=== PATIENT | male | born 1980 ===

== ENCOUNTER 2020-11-16 15:52 | Emergency (ER) | payer OTHER, SELFPAY ==
--- NOTE | ~2020-11-16 | US_ITS ---
EXAMINATION: US VENOUS ULTRASOUND WITH DOPPLER LOWER EXTREMITY, BILATERAL CLINICAL INFORMATION: Edema COMPARISON: None TECHNIQUE: Ultrasound of the deep veins is performed from the hip to the calf with compression sonography and color and pulse Doppler assessment. Spectral analysis with color-flow imaging is performed. FINDINGS: RIGHT: There is normal venous compression and respiratory variation and augmented flow. The visualized common femoral vein, superficial femoral vein, profunda femoral vein, popliteal vein, and the trifurcation region shows no evidence of deep venous thrombosis. There is no significant popliteal fossa cyst. LEFT: There is normal venous compression and respiratory variation and augmented flow. The visualized common femoral vein, superficial femoral vein, profunda femoral vein, popliteal vein, and the trifurcation region shows no evidence of deep venous thrombosis. There is no significant popliteal fossa cyst. If the patient's symptoms persist, followup ultrasound in 5 days 7 days might be of value to exclude proximal propagation from a non-visualized calf vein. US/US venous duplex LE BI IMPRESSION: No DVT demonstrated in the both lower extremity.
[2020-11-16 16:09] VITALS: BP 137/92; PULSE 78; RESP 18; TEMP 36.2; O2SAT 98; BMI 35.9
[2020-11-16 16:50] LABS: MANUAL DIFF FLAG NO
[2020-11-16 16:55] LABS: Basophils Percent Auto 0.3 % (0-2); Eosinophils Absolute Auto 0.4 X10*3/uL (0.0-0.4); Eosinophils Percent Auto 6.9 % (0-4); Hematocrit 39.3 % (42-52); Hemoglobin 12.8 g/dl (14.0-18.0); Imm Gran Abs Auto 0.03 X10*3/uL (0.00-0.03); Imm Gran Pct Auto 0.5 % (0.0-0.4); Lymphocytes Absolute Auto 2.1 X10*3/uL (1.2-4.9); Lymphocytes Percent Auto 33.7 % (20-40); Mean Corpuscular HGB Conc 32.6 g/dl (31.0-36.0); Mean Corpuscular Volume 88.9 fL (80-98); Mean Platelet Volume 9.4 fL (9.4-12.4); Monocytes Absolute Auto 0.5 X10*3/uL (0.1-1.2); Monocytes Percent Auto 7.9 % (2-11); Neutrophils Absolute Auto 3.2 X10*3/uL (2.0-8.3); Neutrophils Percent Auto 50.7 % (45-73); Platelet Count 171 X10*3/uL (160-400); Red Blood Count 4.42 X10*6/uL (4.60-5.80); Red Cell Distribution Width 12.9 % (11.0-16.0); White Blood Count 6.2 X10*3/uL (4.8-10.8)
[2020-11-16 17:31] LABS: Anion Gap 10 (12-20); Blood Urea Nitrogen 19 mg/dL (9-16); Calcium 9.6 mg/dL (8.4-10.2); Carbon Dioxide 31 mmol/L (22-29); Chloride 106 mmol/L (96-108); Creatinine Clr Calc Pharmacy 93.5; Estimated Glomerular Filt Rate 59; Glucose Random 84 mg/dL (60-115); Potassium 4.4 mmol/L (3.3-5.1); Sodium 143 mmol/L (135-145)
[2020-11-16 21:06] VITALS: BP 147/89; PULSE 76; RESP 16; TEMP 36.6; O2SAT 98
--- NOTE | 2020-11-16 21:09 | ED.EXTPRO ---
HPI - Extremity Problem General Chief complaint: Extremity Problem Stated complaint: feet swelling Time Seen by Provider: 11/16/20 21:09 Source: patient Mode of arrival: ambulatory Limitations: no limitations History of Present Illness HPI Narrative: Leg swelling. 2 days of swelling to both legs. Now getting worse. patient denies kidney or liver issues. no recent travel, no long trips, no history of clots. Denies dark urine. MD Complaint: extremity swelling Onset (ago): day(s) Location: left, right and lower extremity Associated symptoms: denies other symptoms Related Data Previous Rx's Medication Instructions Recorded furosemide 20 mg tablet (Lasix) 20 mg PO DAILY #10 tab 11/16/20 Allergies Allergy/AdvReac Type Severity Reaction Status Date / Time No Known Allergies Allergy Unverified 12/15/19 14:59 Review of Systems Constitutional: Constitutional: Reports no additional constitutional complaints Eyes: Eyes: Reports no additional eye complaints ENT: Denies dizziness Cardiovascular: Cardiovascular: Reports no additional cardiovascular complaints Respiratory: Respiratory: Reports as per HPI Gastrointestinal: Gastrointestinal: Reports no additional gastrointestinal complaints Musculoskeletal: Musculoskeletal: Reports no additional musculoskeletal complaints Integumentary/Breasts: Skin/Breast: Denies rash Neurologic: Reports system reviewed and no additional complaints, except as documented, Denies dizziness and Denies Sensory deficit (Neuro) Psychiatric: Psychiatric: Denies anxiety PMFSH Social History Social History Advance Directives: Yes Advance Directives Information Provided: Yes Advance Directives on File: No Physical Exam Vital Signs: Vital Signs: Last Vital Signs Temp 97.9 F 11/16/20 21:06 Pulse 76 11/16/20 21:06 Resp 16 11/16/20 21:06 BP 147/89 H 11/16/20 21:06 Pulse Ox 98 11/16/20 21:06 Body Mass Index 35.9 Const: General: healthy appearing Nutritional Appearance: average body habitus Orientation/consciousness: oriented to person and patient oriented x3 Limitations: no limitations HENMT: Head: Yes normal to inspection Ears: external ears normal General nose exam: Normal external nose present Mouth: Normal oral and palatal mucosa present and oropharynx normal Throat: Yes posterior oropharynx normal Eyes: General: appearance normal, both eyes and all related structures Neck: Other: supple Neck: Yes normal visual inspection Chest: Chest palpation & inspection: normal inspection of the chest Resp: Auscultation: clear to auscultation bilaterally Cardio: Jugular venous distension: no JVD Rate: regular rate Rhythm: regular rhythm Heart sounds: S1 normal heart sound present and S2 normal heart sound present GI: Inspection: Yes normal to inspection Palpation (GI): Soft to palpation, nontender and No hepatosplenomegaly present Auscultation: normal bowel sounds : General: Yes no CVA tenderness Back/Spine/Pelvis: Back: no CVA tenderness Skin: General skin exam: no rashes or lesions noted Neuro: General: oriented to person and patient oriented x3 Cranial nerves: Yes CN's II-XII intact bilaterally Motor exam (neuro): 5/5 motor strength present throughout Sensory Exam: No Sensory deficit (Neuro) Extrem: Other: bilateral leg edema good DP pulse bilaterally Psych: Appearance: grossly normal Course Reevaluation(s) Reevaluation #1: no evidence of DVT, liver failure, or renal failure will start on a few days of diuretic and dc home with leg elevation Time: 22:36 MDM - Extremity (Nontraumatic) Lab Data Result diagrams: 11/16/20 16:44 11/16/20 16:43 Labs: Lab Results 11/16/20 11/16/20 11/16/20 Range/Units 16:43 16:44 21:57 WBC 6.2 (4.8-10.8) X10*3/uL RBC 4.42 L (4.60-5.80) X10*6/uL Hgb 12.8 L (14.0-18.0) g/dl Hct 39.3 L (42-52) % MCV 88.9 (80-98) fL MCH 29.0 (27.0-33.0) pg MCHC 32.6 (31.0-36.0) g/dl RDW 12.9 (11.0-16.0) % Plt Count 171 (160-400) X10*3/uL MPV 9.4 (9.4-12.4) fL Immature Gran % (Auto) 0.5 H (0.0-0.4) % Neut % (Auto) 50.7 (45-73) % Lymph % (Auto) 33.7 (20-40) % [place] % (Auto) 7.9 (2-11) % Eos % (Auto) 6.9 H (0-4) % Baso % (Auto) 0.3 (0-2) % Lymph # (Auto) 2.1 (1.2-4.9) X10*3/uL [place] # (Auto) 0.5 (0.1-1.2) X10*3/uL Eos # (Auto) 0.4 (0.0-0.4) X10*3/uL Baso # (Auto) 0.0 (0.0-0.2) X10*3/uL Abs Immat Gran (auto) 0.03 (0.00-0.03) X10*3/uL Absolute Neuts (auto) 3.2 (2.0-8.3) X10*3/uL Absolute Nucleated RBC 0.000 (0.0-0.012) X10*3/uL Nucleated RBC % (auto) 0.0 (0.0-0.2) /100WBC Sodium 143 (135-145) mmol/L Potassium 4.4 (3.3-5.1) mmol/L Chloride 106 (96-108) mmol/L Carbon Dioxide 31 H (22-29) mmol/L Anion Gap 10 L (12-20) BUN 19 H (9-16) mg/dL Creatinine 1.35 (0.5-1.4) mg/dL Estim Creat Clear Calc 93.5 Estimated GFR 59 Random Glucose 84 (60-115) mg/dL Calcium 9.6 (8.4-10.2) mg/dL Total Bilirubin 0.3 (0.0-1.0) mg/dL Direct Bilirubin < 0.2 (0.0-0.5) mg/dL AST 34 (5-37) U/L ALT 56 H (0-40) U/L Alkaline Phosphatase 74 (39-117) U/L Total Protein 6.3 L (6.5-8.0) g/dL Albumin 4.0 (3.5-5.0) g/dL Urine Color Urine Appearance Urine pH (5.0-8.0) Ur Specific [place] (1.005-1.025) Urine Protein (NEG-TRACE) MG/DL Urine Glucose (UA) (NEG) MG/DL Urine Ketones (NEG) MG/DL Urine Blood (NEG) Urine Nitrite (NEG) Ur Leukocyte Esterase (NEG) 08/20/21 Range/Units 21:57 WBC (4.8-10.8) X10*3/uL RBC (4.60-5.80) X10*6/uL Hgb (14.0-18.0) g/dl Hct (42-52) % MCV (80-98) fL MCH (27.0-33.0) pg MCHC (31.0-36.0) g/dl RDW (11.0-16.0) % Plt Count (160-400) X10*3/uL MPV (9.4-12.4) fL Immature Gran % (Auto) (0.0-0.4) % Neut % (Auto) (45-73) % Lymph % (Auto) (20-40) % [place] % (Auto) (2-11) % Eos % (Auto) (0-4) % Baso % (Auto) (0-2) % Lymph # (Auto) (1.2-4.9) X10*3/uL [place] # (Auto) (0.1-1.2) X10*3/uL Eos # (Auto) (0.0-0.4) X10*3/uL Baso # (Auto) (0.0-0.2) X10*3/uL Abs Immat Gran (auto) (0.00-0.03) X10*3/uL Absolute Neuts (auto) (2.0-8.3) X10*3/uL Absolute Nucleated RBC (0.0-0.012) X10*3/uL Nucleated RBC % (auto) (0.0-0.2) /100WBC Sodium (135-145) mmol/L Potassium (3.3-5.1) mmol/L Chloride (96-108) mmol/L Carbon Dioxide (22-29) mmol/L Anion Gap (12-20) BUN (9-16) mg/dL Creatinine (0.5-1.4) mg/dL Estim Creat Clear Calc Estimated GFR Random Glucose (60-115) mg/dL Calcium (8.4-10.2) mg/dL Total Bilirubin (0.0-1.0) mg/dL Direct Bilirubin (0.0-0.5) mg/dL AST (5-37) U/L ALT (0-40) U/L Alkaline Phosphatase (39-117) U/L Total Protein (6.5-8.0) g/dL Albumin (3.5-5.0) g/dL Urine Color YELLOW Urine Appearance CLEAR Urine pH 6.5 (5.0-8.0) Ur Specific [place] 1.020 (1.005-1.025) Urine Protein NEG (NEG-TRACE) MG/DL Urine Glucose (UA) NEG (NEG) MG/DL Urine Ketones NEG (NEG) MG/DL Urine Blood NEG (NEG) Urine Nitrite NEG (NEG) Ur Leukocyte Esterase NEG (NEG) Discharge Plan Discharge Clinical Impression: Lower extremity edema Patient Disposition: Home, Self-Care Instructions: Leg Edema (ED), Edema (ED) Prescriptions: New furosemide [Lasix] 20 mg tablet 20 mg PO DAILY Qty: 10 RF: 0 Referrals: Physician,Unknown [Primary Care Provider] - 5 days
[2020-11-16 22:06] LABS: Glucose Urine UA NEG (NEG); Leukocyte Esterase Urine NEG (NEG); Nitrite Urine NEG (NEG); PH 6.5 (5.0-8.0); Urine Blood NEG (NEG); Urine Ketones NEG (NEG); Urine Protein NEG (NEG-TRACE)
[2020-11-16 22:08] LABS: Appearance Urine CLEAR; Color Urine YELLOW
[2020-11-16 22:29] LABS: Alanine Aminotransferase 56 U/L (0-40); Alkaline Phosphatase 74 U/L (39-117); Aspartate Amino Transferase 34 U/L (5-37); Bilirubin Direct < 0.2 mg/dL (0.0-0.5); Bilirubin Total 0.3 mg/dL (0.0-1.0); Total Protein 6.3 g/dL (6.5-8.0)
[2020-11-16 22:45] VITALS: BP 145/92; PULSE 75; RESP 16; TEMP 36.6; O2SAT 97
--- NOTE | 2020-11-16 23:04 | PC.NURSE ---
PT LEFT PRIOR TO RECEIVING HIS LASIX DOSE.
== END 2020-11-16 23:10 | disposition home or self-care (01) ==
PROVIDERS: Emergency Provider Emergency Medicine
DX: R60.0 Localized edema (principal)
CPT/HCPCS: 36415; 80048; 80076; 81003; 85025; 93970; 99284

== ENCOUNTER 2020-12-17 01:32 | Emergency (ER) | payer OTHER, SELFPAY ==
[2020-12-17 01:39] VITALS: BP 139/88; PULSE 97; RESP 16; TEMP 37.2; O2SAT 96; BMI 30.8
--- NOTE | 2020-12-17 02:11 | ED.GENADULT ---
HPI - General Adult General Chief complaint: ETOH/Substance Use Stated complaint: pcp Time Seen by Provider: 12/17/20 02:11 Source: patient and EMS Mode of arrival: EMS Limitations: no limitations History of Present Illness HPI narrative: A 40-year-old male came in for evaluation after using PCP. Patient admitted to using PCP last night, father of the patient called EMS to send him to the hospital patient is cooperative and calm with no apparent distress, patient declined any hallucination, no SI or HI. Patient declined any chest pain or shortness of breath. Will monitor the patient overnight in the hospital and will discharge in the morning. Related Data Previous Rx's Medication Instructions Recorded furosemide 20 mg tablet (Lasix) 20 mg PO DAILY #10 tab 11/16/20 Allergies Allergy/AdvReac Type Severity Reaction Status Date / Time No Known Allergies Allergy Unverified 12/15/19 14:59 Review of Systems Review of Systems: All other systems are reviewed and are negative Constitutional: Reports as per HPI and Reports no additional constitutional complaints Eyes: Reports as per HPI and Reports no additional eye complaints Reports system reviewed and no additional complaints, except as documented Cardiovascular: Reports as per HPI and Reports no additional cardiovascular complaints Respiratory: Reports as per HPI and Reports no additional respiratory complaints Gastrointestinal: Reports as per HPI and Reports no additional gastrointestinal complaints Genitourinary: Reports no additional female genitourinary complaints Musculoskeletal: Reports no additional musculoskeletal complaints Skin/Breast: Reports system reviewed and no additional complaints, except as docu Psychiatric: Reports no additional psychiatric complaints Endocrine: Reports no additional endocrine complaints Hematologic/Lymphatic: Reports no additional hematologic/lymphatic complaints Allergic/Immunologic: Reports no additional allergic/immunologic complaints Reports system reviewed and no additional complaints, except as documented and Reports Abnormal speech present [facility] Social History Social History Advance Directives: No Physical Exam Vital Signs: Vital Signs: Last Vital Signs Temp 98.9 F 12/17/20 01:39 Pulse 97 12/17/20 01:39 Resp 16 12/17/20 01:39 BP 139/88 12/17/20 01:39 Pulse Ox 96 12/17/20 01:39 Body Mass Index 30.8 Vital signs have been reviewed as appeared to be correct. Blood pressure normal. Heart rate normal. Respiration rate normal. Temperature normal. Oxygen saturation normal. Appearance: Alert. Oriented X3. No acute distress. Head: Normal external exam. Normocephalic. Atraumatic. No Tovar signs noted. No raccoon eyes noted Eyes: PERRLA. EOMI. Conjunctiva and sclera normal. Eyelids normal. ENT: TM's Normal. Pharynx normal. Uvula midline. Moist mucous membranes. No trismus noted. No drooling noted. No muffled voice noted. Neck: Normal inspection. Neck supple. FROM. No adenopathy. Thyroid Normal. No meningeal signs. No neck mass noted. CVS: Normal heart rate and rhythm. Heart sound normal. No murmurs noted. Pulses normal throughout. Respiratory: No respiratory distress. Painless inspiration. Breath sounds normal. No wheezes/rales/rhonchi noted. Chest nontender. No accessory muscle usage noted or decreased air movement noted. Abdomen: Soft and nontender. Bowel sounds normal in all 4 quadrants. No distention noted. No organomegaly noted. No visible injury noted. Back: No CVA tenderness. Full range of motion noted. Skin: Skin warm and dry. Normal skin color. Normal skin turgor. No rashes/lesions/lacerations noted. Extremities: No lower extremity edema. Extremities exhibit normal range of motion. Extremities nontender. Neuro: Oriented X 3. Cranial nerve exam: II-XII are grossly intact No motor deficit. No sensory deficit. Reflexes normal. Course Course Course Narrative: Assessment and plan. 40-year-old male kept overnight in the hospital for monitoring after using PCP, patient has no acute psychological symptoms, stable vital signs will discharge home. Discharge Plan Discharge Clinical Impression: Substance abuse Patient Disposition: Home, Self-Care Instructions: Polysubstance Abuse (ED) Additional Instructions: Follow-up with your primary doctor. Prescriptions: No Action furosemide [Lasix] 20 mg tablet 20 mg PO DAILY Qty: 10 RF: 0
[2020-12-17 02:41] VITALS: RESP 16; O2SAT 100
--- NOTE | 2020-12-17 02:42 | PC.NURSE ---
pt observed by this nurse sitting at the edge of bed looking around confused. pt stated where am I and this nurse reoriented pt and informed him about tonights events which brought him the hospital. pt then saw it was almost 3am and stated he wanted to go back to sleep. pt got back in bed and this nurse provided pt with fresh warm blanket. o2 probe on finger. call ibarra in reach. provider aware.
[2020-12-17 05:08] VITALS: RESP 16
[2020-12-17 06:57] VITALS: BP 135/86; PULSE 63; RESP 17; O2SAT 97
--- NOTE | 2020-12-17 07:01 | PC.NURSE ---
Assumed care of patient. Pt is up for discharge. Pt arousable and given his breakfast and repeated vitals which are in normal limits. Pt given his discharge paperwork.
== END 2020-12-17 07:03 | disposition home or self-care (01) ==
PROVIDERS: Emergency Provider Emergency Medicine
DX: F10.129 Alcohol abuse with intoxication, unspecified (principal); F16.10 Hallucinogen abuse, uncomplicated; Y90.9 Presence of alcohol in blood, level not specified; Z79.899 Other long term (current) drug therapy; Z71.51 Drug abuse counseling and surveillance of drug abuser
CPT/HCPCS: 99284

== ENCOUNTER 2022-09-21 16:41 | Emergency (ER) | payer OTHER, SELFPAY ==
--- NOTE | ~2022-09-21 | CT_ITS ---
EXAMINATION: CT ABDOMEN AND PELVIS WITH CONTRAST CLINICAL INFORMATION: Abdominal pain/ventral hernia COMPARISON: None available. TECHNIQUE: Multidetector volumetric images were obtained from the superior aspect of the liver through the pubic symphysis following administration 85 mL of Omnipaque 350 intravenous contrast. Sagittal and coronal reformatted images were obtained on the technologist's workstation. Oral contrast: No This CT examination was performed using dose optimization techniques as appropriate, variously including the following: *Automated exposure control *Adjustment of mA and/or kV according to patient size (this includes techniques or standardized protocols for targeted exams where dose is matched to indication/reason for exam; i.e. extremities or head) *Use of iterative reconstruction technique DLP: 831 mGy-cm FINDINGS: LUNG BASES: The visualized lung bases are unremarkable. LIVER, GALLBLADDER, AND BILIARY TREE: The liver is normal in size, shape, and attenuation. No focal hepatic lesion or biliary ductal dilatation is present. The gallbladder is contracted but unremarkable with no evidence of radiopaque gallstones, gallbladder wall thickening, or obvious pericholecystic inflammatory changes. PANCREAS: Unremarkable. SPLEEN: Unremarkable. ADRENAL GLANDS: Unremarkable. KIDNEYS AND URETERS: The kidneys are normal in size, shape, and attenuation. No hydronephrosis, hydroureter, or calculi seen. No perinephric stranding. BLADDER: Unremarkable. GASTROINTESTINAL TRACT: The small and large bowel are unremarkable. The appendix is unremarkable. ABDOMINAL WALL: Is a small ventral hernia present just above the umbilicus containing only fat with inflammatory changes within the fat. The hernia sac measures 2.5 x 2.5 x 3.1 cm. The fascial defect measures about 1.0 x 0.8 cm. LYMPH NODES: No retroperitoneal lymphadenopathy. VASCULAR: Unremarkable. PELVIC VISCERA: The prostate and seminal vesicles are unremarkable. OSSEOUS STRUCTURES: Unremarkable. CT/CT abdomen pelvis w IV con IMPRESSION: Small ventral hernia containing only fat with inflammatory changes within the fat. Fleischner guidelines were followed.
[2022-09-21 18:22] VITALS: BP 138/72; PULSE 70; RESP 18; TEMP 36.2; O2SAT 98; BMI 34.4
--- NOTE | 2022-09-21 18:22 | ED.ABDPAIN ---
HPI - Abdominal Pain General Chief Complaint: Abdominal Pain Stated Complaint: Abd pain/ Hernia? Time Seen by Provider: 09/21/22 21:09 Related Data Previous Rx's Medication Instructions Recorded furosemide 20 mg tablet (Lasix) 20 mg PO DAILY #10 tabs 11/16/20 Allergies Allergy/AdvReac Type Severity Reaction Status Date / Time No Known Allergies Allergy Unverified 12/15/19 14:59 [facility] Social History Social History Alcohol intake: never Smoked in Last 30 Days: Yes Use of substances other than those prescribed or required for medical reasons: Yes Substance Use Type: Marijuana Substance Use Frequency: Chronic Longstanding Substance Use Frequency Other:: last 2 hours Last Used Substance: Hours (ago) Any prior treatment program specific to substance use: No Advance Directives: No Advance Directives Information Provided: No Physical Exam ED Vital Signs: BMI result Body Mass Index 34.4 Course Course Course Narrative: This is an RME: Additional HPI, ROS, PE not included below will be deferred to primary provider. Patient is a 42-year-old male who presents to the emergency department for evaluation of abdominal pain. Reports onset of abdominal pain located superior to the umbilicus with palpable lump that is made worse with position change in, feels ?a tearing sensation?. It is manually reducible by his account. Denies fevers, chills, nausea or vomiting. Feels constipated, last bowel movement was yesterday. Denies any history of abdominal surgeries. Plan: Serum labs, CT AP Medical Decision Making Lab Data 09/21/22 19:20 09/21/22 19:20 Labs: Lab Results 09/21/22 09/21/22 09/21/22 Range/Units 19:20 19:20 19:20 WBC 10.8 (4.8-10.8) X10*3/uL RBC 5.17 (4.60-5.80) X10*6/uL Hgb 15.2 (14.0-18.0) g/dl Hct 46.7 (42.0-52.0) % MCV 90.3 (80.0-98.0) fL MCH 29.4 (27.0-33.0) pg MCHC 32.5 (31.0-36.0) g/dl RDW 12.9 (11.0-16.0) % Plt Count 220 (160-400) X10*3/uL MPV 9.8 (9.4-12.4) fL Immature Gran % (Auto) 0.4 (0.0-0.4) % Neut % (Auto) 46.1 (45-73) % Lymph % (Auto) 42.1 H (20-40) % [place] % (Auto) 6.6 (2-11) % Eos % (Auto) 4.5 H (0-4) % Baso % (Auto) 0.3 (0-2) % Lymph # (Auto) 4.6 (1.2-4.9) X10*3/uL [place] # (Auto) 0.7 (0.1-1.2) X10*3/uL Eos # (Auto) 0.5 H (0.0-0.4) X10*3/uL Baso # (Auto) 0.0 (0.0-0.2) X10*3/uL Abs Immat Gran (auto) 0.04 H (0.00-0.03) X10*3/uL Absolute Neuts (auto) 5.0 (2.0-8.3) x10*3/uL Absolute Nucleated RBC 0.000 (0.0-0.012) X10*3/uL Nucleated RBC % (auto) 0.0 (0.0-0.2) /100WBC Sodium 143 (135-145) mmol/L Potassium 4.4 (3.3-5.1) mmol/L Chloride 109 H (96-108) mmol/L Carbon Dioxide 28 (22-29) mmol/L Anion Gap 10 L (12-20) BUN 15 (9-16) mg/dL Creatinine 1.08 (0.5-1.4) mg/dL Estim Creat Clear Calc 112.3 Estimated GFR > 60 Random Glucose 79 (60-115) mg/dL Calcium 9.9 (8.4-10.2) mg/dL Total Bilirubin 0.5 (0.0-1.0) mg/dL AST 25 (5-37) U/L ALT 30 (0-40) U/L Alkaline Phosphatase 92 (39-117) U/L Total Protein 7.6 (6.5-8.0) g/dL Albumin 4.4 (3.5-5.0) g/dL Lipase 13 (8-78) U/L Urine Color Yellow Urine Appearance Clear Urine pH 5.0 (5.0-9.0) Ur Specific [place] >= 1.030 H (1.005-1.025) Urine Protein Negative (Neg-Trace) mg/dL Urine Glucose (UA) Negative (Negative) mg/dL Urine Ketones Negative (Negative) mg/dL Urine Blood Negative (Negative) Urine Nitrite Negative (Negative) Ur Leukocyte Esterase Negative (Negative) Medications Administered Discontinued Medications Generic Name Dose Route Start Last Admin Trade Name Freq PRN Reason Stop Dose Admin Iohexol 85 ml 09/21/22 20:40 09/21/22 20:41 Iohexol 350 Mg/Ml 100 Ml Infus..Btl IV 09/21/22 20:41 85 ml ONCE ONE Administration Discharge Plan Discharge Clinical Impression: Hernia, ventral Patient Disposition: Home, Self-Care Instructions: Ventral Hernia (ED) Prescriptions: No Action furosemide [Lasix] 20 mg tablet 20 mg PO DAILY Qty: 10 0RF Referrals: Williams Basilio MD [Physician] - 09/23/22 Stand Alone Forms: Work/School Release Interventions: ED Discharge Assessment Last Done: 09/21/22 22:49 Discharge Date/Time: 09/21/22 22:48
[2022-09-21 19:25] LABS: MANUAL DIFF FLAG NO
--- OUTSIDE RECORDS SUMMARY | 2022-09-21 19:26 | XMS_ITS ---
Author Name Unknown Organization [facility] Address [address] [place] [address]- Care Team Providers Care [facility] Reverse Winder Name Role Phone No pcp no family, Dr Primary Care Physician Unav ailable Encounter [facility] [id number] Date(s): 06/22/21 - 06/22/[address] [id number] [facility] Encounter Diagnosis Chronic pain(Discharge Diagnosis) - 06/22/21 Methadone use(Discharge Diagnosis) - 06/22/21 Heroin abuse(Discharge Diagnosis) - 06/22/21 Attending Physician: Richar Duran DO Admitting Physician: Richar Duran DO Referring Physician: No referring, Doctor Vital Signs Most recent to oldest [Reference Range]: 1 Temperature (Route Not Specified) [36.5- 37.3 DegC] 36 DegC *LOW* (06/22/21 11:35 AM) Peripheral Pulse Rate [60-100 bpm] 66 bp m (06/22/21 11:00 AM) Respiratory Rate [12-20 br/min] 22 br/mi n *HI* (06/22/21 11:35 AM) Blood Pressure [90-135/60-80 mmHg] 143/6 9mmHg *HI* (06/22/21 11:00 AM) Height 177.8 cm (06/22/21 9:31 AM) Weight 117.93 kg (06/22/21 9:31 AM) Problem List Diagnosis Diagnosis Type Effective Dates Health Status Cl inical Service Informant Methadone use Discharge Diagnosis 06/22/21 Non-Specified Chronic pain Discharge Diagnosis 06/22/21 Non-Specified Heroin abuse Discharge Diagnosis 06/22/21 Non-Specified Allergies, Adverse Reactions, Alerts No Known Allergies Medications naloxone (naloxone 1 mg/mL i njectable solution) Status: Ordered Start Date: 06/22/21 1 Milligram Intravenous Once. use in the case of opiod overdose. Refills: 0. Ordering provider: Richar Duran DO Results Most recent to oldest [Reference Range]: 1 Estimated Creatinine Clearance 102.40 mL /min 1 (06/22/21 10:29 AM) Anion Gap [9-18 mmol/L] 9 mmol/L (06/22/21 9:51 AM) INR [0.89-1.07] 1.43 *HI* (06/22/21 9:51 AM) BUN/Creat Ratio [12.0-20.0 Ratio] 14.0 R atio (06/22/21 9:51 AM) Acetaminophen Lvl [10.0-30.0 mcg/mL] <2. 0 mcg/mL *LOW* (06/22/21 9:51 AM) Alk Phos [50-136 units/L] 101 units/L (06/22/21 9:51 AM) ALT [16-63 units/L] 73 units/L *HI* (06/22/21 9:51 AM) AST [15-37 units/L] 47 units/L *HI* (06/22/21 9:51 AM) T Bili [0.20-1.00 mg/dL] 0.63 mg/dL (06/22/21 9:51 AM) CO2 [21.0-32.0 mmol/L] 17.0 mmol/L *LOW* (06/22/21 9:51 AM) Hct [42-53 %] 48 % (06/22/21 9:51 AM) Hgb [14.5-17.7 gm/dL] 15.8 gm/dL (06/22/21 9:51 AM) MCH [28.0-32.0 pg] 28.1 pg (06/22/21 9:51 AM) MCHC [31.2-35.2 gm/dL] 32.7 gm/dL (06/22/21 9:51 AM) MCV [81-98 Femtoliters] 86 Femtoliters (06/22/21 9:51 AM) MPV [7.2-11.1 Femtoliters] 8.0 Femtolite rs (06/22/21 9:51 AM) PT [9.8-11.7 Seconds] 14.6 Seconds *HI* (06/22/21 9:51 AM) RBC [4.60-6.00 x10e6/mcL] 5.61 x10e6/mcL (06/22/21 9:51 AM) Salicylate [2.80-20.00 mg/dL] 4.40 mg/dL (06/22/21 9:51 AM) TP [6.4-8.2 gm/dL] 8.3 gm/dL *HI* (06/22/21 9:51 AM) WBC [4.0-10.6 x10e3/mcL] 8.7 x10e3/mcL (06/22/21 9:51 AM) Plt [150-400 x10e3/mcL] 212 x10e3/mcL (06/22/21 9:51 AM) BUN [7-18 mg/dL] 14 mg/dL (06/22/21 9:51 AM) Chloride [98-107 mmol/L] 110 mmol/L *HI* (06/22/21 9:51 AM) Eos # Auto [0.0-0.3 x10e3/mcL] 0.3 x10e3 /mcL (06/22/21 9:51 AM) RDW-CV [10.0-15.4 %] 13.6 % (06/22/21 9:51 AM) [place] % Auto [3.0-13.0 %] 5.1 % (06/22/21 9:51 AM) Lymph # Auto [1.0-3.4 x10e3/mcL] 1.9 x10 e3/mcL (06/22/21 9:51 AM) Calcium [8.5-10.1 mg/dL] 8.9 mg/dL (06/22/21 9:51 AM) Neut % Auto [40.0-76.0 %] 68.9 % (06/22/21 9:51 AM) Lymph % Auto [16.0-47.0 %] 22.2 % (06/22/21 9:51 AM) Eos % Auto [0.0-5.0 %] 3.1 % (06/22/21 9:51 AM) Baso % Auto [0.0-2.0 %] 0.7 % (06/22/21 9:51 AM) Neut # Auto [1.8-7.0 x10e3/mcL] 6.0 x10e 3/mcL (06/22/21 9:51 AM) [place] # Auto [0.20-0.80 x10e3/mcL] 0.40 x 10e3/mcL (06/22/21 9:51 AM) Albumin. Level [3.4-5.0 gm/dL] 3.6 gm/dL (06/22/21 9:51 AM) Baso # Auto [0.0-0.1 x10e3/mcL] 0.1 x10e 3/mcL (06/22/21 9:51 AM) % Alcohol <0.01 % *NA* (06/22/21 9:51 AM) Ethanol [<=3 mg/dL] <3 mg/dL (06/22/21 9:51 AM) Potassium [3.5-5.1 mmol/L] 4.4 mmol/L (06/22/21 9:51 AM) Sodium [136-145 mmol/L] 136 mmol/L (06/22/21 9:51 AM) Glucose Level [74-106 mg/dL] 87 mg/dL (06/22/21 9:51 AM) eGFR [>=60] 108.09 *NA* (06/22/21 9:51 AM) eGFR Non- [>=60] 93.26 *NA* (06/22/21 9:51 AM) Creatinine [0.6-1.3 mg/dL] 1.0 mg/dL (06/22/21 9:51 AM) eGFR Pediatric [>=75 mL/min/1.73m2] Not Reported mL/min/1.73m2 2 *NA* (06/22/21 9:51 AM) Calc [place]smo [265-285] 272 (06/22/21 9:51 AM) 1Result Comment: Calculated using method: Cockroft-Gault 2Result Comment: Not reported for adult patients ( > 18 years old ). Procedures Procedure Date Related Diagnosis Body Site Status Collection of venous blood b y venipuncture 06/22/21 Completed Social History Social History Type Response Tobacco Current 1 11/2 pack per day
[2022-09-21 19:31] LABS: Appearance Urine Clear; Color Urine Yellow; Glucose Urine UA Negative (Negative); Leukocyte Esterase Urine Negative (Negative); Nitrite Urine Negative (Negative); Specific Gravity - Urine >= 1.030 (1.005-1.025); Urine Blood Negative (Negative); Urine Ketones Negative (Negative); Urine Protein Negative (Neg-Trace)
[2022-09-21 19:32] LABS: Basophils Percent Auto 0.3 % (0-2); Eosinophils Absolute Auto 0.5 X10*3/uL (0.0-0.4); Eosinophils Percent Auto 4.5 % (0-4); Hematocrit 46.7 % (42.0-52.0); Hemoglobin 15.2 g/dl (14.0-18.0); Imm Gran Abs Auto 0.04 X10*3/uL (0.00-0.03); Imm Gran Pct Auto 0.4 % (0.0-0.4); Lymphocytes Absolute Auto 4.6 X10*3/uL (1.2-4.9); Lymphocytes Percent Auto 42.1 % (20-40); Mean Corpuscular HGB Conc 32.5 g/dl (31.0-36.0); Mean Corpuscular Hemoglobin 29.4 pg (27.0-33.0); Mean Corpuscular Volume 90.3 fL (80.0-98.0); Mean Platelet Volume 9.8 fL (9.4-12.4); Monocytes Absolute Auto 0.7 X10*3/uL (0.1-1.2); Monocytes Percent Auto 6.6 % (2-11); Neutrophils Percent Auto 46.1 % (45-73); Platelet Count 220 X10*3/uL (160-400); Red Blood Count 5.17 X10*6/uL (4.60-5.80); Red Cell Distribution Width 12.9 % (11.0-16.0); White Blood Count 10.8 X10*3/uL (4.8-10.8)
[2022-09-21 20:10] LABS: Alanine Aminotransferase 30 U/L (0-40); Albumin Level 4.4 g/dL (3.5-5.0); Alkaline Phosphatase 92 U/L (39-117); Anion Gap 10 (12-20); Aspartate Amino Transferase 25 U/L (5-37); Bilirubin Total 0.5 mg/dL (0.0-1.0); Blood Urea Nitrogen 15 mg/dL (9-16); Calcium 9.9 mg/dL (8.4-10.2); Carbon Dioxide 28 mmol/L (22-29); Chloride 109 mmol/L (96-108); Creatinine Clr Calc Pharmacy 112.3; Estimated Glomerular Filt Rate > 60; Glucose Random 79 mg/dL (60-115); Lipase 13 U/L (8-78); Potassium 4.4 mmol/L (3.3-5.1); Sodium 143 mmol/L (135-145); Total Protein 7.6 g/dL (6.5-8.0)
[2022-09-21 20:20] VITALS: BP 122/85; PULSE 66; RESP 17; TEMP 36.8; O2SAT 98
[2022-09-21] MEDS: iohexoL 350 MG/ML 100 ML INFUS..BTL 85 ML IV (20:41)
--- NOTE | 2022-09-21 21:32 | ED.ABDPAIN ---
HPI - Abdominal Pain General Chief Complaint: Abdominal Pain Stated Complaint: Abd pain/ Hernia? Time Seen by Provider: 09/21/22 21:09 History of Present Illness HPI narrative: Patient is a 42-year-old male present today with having abdominal pain. Patient feels a mass just above the belly button. It is worse when he bears down. It is worse when he stands up. It goes away when he lies flat. Patient discovered this when he was lifting a heavy box. He has no nausea no vomiting. He has some constipation but has been passing gas. No abdominal surgery in the past. No fever no chills. No chest pain no shortness of breath. No diaphoresis. Related Data Previous Rx's Medication Instructions Recorded furosemide 20 mg tablet (Lasix) 20 mg PO DAILY #10 tabs 11/16/20 Allergies Allergy/AdvReac Type Severity Reaction Status Date / Time No Known Allergies Allergy Unverified 12/15/19 14:59 Review of Systems Review of Systems Positive mass in the supraumbilical area PMFSH Past Medical History Attestation statement: The following information was validated with the patient. Social History Social History Alcohol intake: never Smoked in Last 30 Days: Yes Use of substances other than those prescribed or required for medical reasons: Yes Substance Use Type: Marijuana Substance Use Frequency: Chronic Longstanding Substance Use Frequency Other:: last 2 hours Last Used Substance: Hours (ago) Any prior treatment program specific to substance use: No Advance Directives: No Advance Directives Information Provided: No Physical Exam ED Vital Signs: Vital Signs - 24 hr 09/21/22 18:22 09/21/22 20:20 Temperature 97.2 F 98.3 F Pulse Rate 70 66 Respiratory Rate 18 17 Blood Pressure 138/72 122/85 Pulse Oximetry 98 98 Oxygen Delivery Method Room Air Room Air BMI result Body Mass Index 34.4 Appearance: Alert. Oriented X3. No acute distress. Eyes: Pupils equal, round and reactive to light. ENT: Pharynx normal. Neck: Normal inspection. Neck supple. No lymph nodes noted. No crepitus CVS: Normal heart rate and rhythm. Pulses normal. Normal S1 and S2 Respiratory: No respiratory distress. Breath sounds normal. No Wheezing. No rales Abdomen: Soft and nontender. No rigidity. No distention. good BS x4. Positive supraumbilical ventral hernia palpable. Clearly reducible when he lies down. She is nontender. Skin: Skin warm and dry. Normal skin color. Normal skin turgor. Extremities: No lower extremity edema. Neurovascular intact to all extremities. No Lacerations. No Rash Neuro: Oriented X 3. No motor deficit. No sensory deficit. Moving all extermities. No slurred speech Medical Decision Making Medical Decision Making [facility] Narrative: Patient has no previous abdominal surgery. Well-appearing no distress. Lungs are clear. No chest pain or shortness of breath suggest cardiac causes. Patient has no vomiting. Has a mass that increased with increased intra-abdominal pressure. Consistent with having a hernia. It is clearly reducible. It is not painful. Findings discussed with patient. CT scan reviewed. There is no evidence of obstruction no evidence of abscess no evidence of perforation. Will discharge patient home follow-up with surgery on an outpatient basis. In stable condition. patient's urine showed no evidence of infection. CT showed no bowel obstruction. Small amount of fat with inflammation noted per Radiology. Clearly the hernia is reducible. Will have patient follow up with surgery on an outpatient basis. Differential Diagnosis Differential Diagnoses: The differential diagnosis associated with the presentation includes Ventral hernia Lab Data [facility] Lab Attestation statement: I reviewed the patient's lab results. 09/21/22 19:20 09/21/22 19:20 Labs: Lab Results 09/21/22 09/21/22 09/21/22 Range/Units 19:20 19:20 19:20 WBC 10.8 (4.8-10.8) X10*3/uL RBC 5.17 (4.60-5.80) X10*6/uL Hgb 15.2 (14.0-18.0) g/dl Hct 46.7 (42.0-52.0) % MCV 90.3 (80.0-98.0) fL MCH 29.4 (27.0-33.0) pg MCHC 32.5 (31.0-36.0) g/dl RDW 12.9 (11.0-16.0) % Plt Count 220 (160-400) X10*3/uL MPV 9.8 (9.4-12.4) fL Immature Gran % (Auto) 0.4 (0.0-0.4) % Neut % (Auto) 46.1 (45-73) % Lymph % (Auto) 42.1 H (20-40) % [place] % (Auto) 6.6 (2-11) % Eos % (Auto) 4.5 H (0-4) % Baso % (Auto) 0.3 (0-2) % Lymph # (Auto) 4.6 (1.2-4.9) X10*3/uL [place] # (Auto) 0.7 (0.1-1.2) X10*3/uL Eos # (Auto) 0.5 H (0.0-0.4) X10*3/uL Baso # (Auto) 0.0 (0.0-0.2) X10*3/uL Abs Immat Gran (auto) 0.04 H (0.00-0.03) X10*3/uL Absolute Neuts (auto) 5.0 (2.0-8.3) x10*3/uL Absolute Nucleated RBC 0.000 (0.0-0.012) X10*3/uL Nucleated RBC % (auto) 0.0 (0.0-0.2) /100WBC Sodium 143 (135-145) mmol/L Potassium 4.4 (3.3-5.1) mmol/L Chloride 109 H (96-108) mmol/L Carbon Dioxide 28 (22-29) mmol/L Anion Gap 10 L (12-20) BUN 15 (9-16) mg/dL Creatinine 1.08 (0.5-1.4) mg/dL Estim Creat Clear Calc 112.3 Estimated GFR > 60 Random Glucose 79 (60-115) mg/dL Calcium 9.9 (8.4-10.2) mg/dL Total Bilirubin 0.5 (0.0-1.0) mg/dL AST 25 (5-37) U/L ALT 30 (0-40) U/L Alkaline Phosphatase 92 (39-117) U/L Total Protein 7.6 (6.5-8.0) g/dL Albumin 4.4 (3.5-5.0) g/dL Lipase 13 (8-78) U/L Urine Color Yellow Urine Appearance Clear Urine pH 5.0 (5.0-9.0) Ur Specific [place] >= 1.030 H (1.005-1.025) Urine Protein Negative (Neg-Trace) mg/dL Urine Glucose (UA) Negative (Negative) mg/dL Urine Ketones Negative (Negative) mg/dL Urine Blood Negative (Negative) Urine Nitrite Negative (Negative) Ur Leukocyte Esterase Negative (Negative) Independent Interpretation I performed an independent interpretation of an: CT Scan Interpretation: No obstruction no abscess or perforation Radiology Impression Discussion of test interpretation with radiology: I have reviewed the radiologist's reading. Independent Historian Clinical information obtained from an independent historian. History obtained from or confirmed by: Spouse Medications Administered Discontinued Medications Generic Name Dose Route Start Last Admin Trade Name Freq PRN Reason Stop Dose Admin Iohexol 85 ml 09/21/22 20:40 09/21/22 20:41 Iohexol 350 Mg/Ml 100 Ml Infus..Btl IV 09/21/22 20:41 85 ml ONCE ONE Administration Discharge Plan Discharge Clinical Impression: Hernia, ventral Patient Disposition: Home, Self-Care Instructions: Ventral Hernia (ED) Prescriptions: No Action furosemide [Lasix] 20 mg tablet 20 mg PO DAILY Qty: 10 0RF Referrals: Williams Basilio MD [Physician] - 09/23/22
--- NOTE | 2022-09-21 22:48 | PC.NURSE ---
patient in the process of being discharged patient was notified
== END 2022-09-21 22:48 | disposition home or self-care (01) ==
PROVIDERS: Nurse Practitioner Family; Emergency Provider Emergency Medicine Emergency Medical Services
DX: K43.9 Ventral hernia without obstruction or gangrene (principal); R10.32 Left lower quadrant pain; Z79.899 Other long term (current) drug therapy
CPT/HCPCS: 36415; 74177; 80053; 81003; 83690; 85025; 99284; Q9967

== ENCOUNTER 2022-10-13 10:38 | Outpatient (AMB) | payer OTHER, SELFPAY ==
--- NOTE | 2022-10-13 10:41 | A.OFFVIS_ITS ---
Intake Vital Signs 10/13/22 10:42 Height 5 ft 10 in Weight 254 lb BMI 36.4 BP 156/84 H Blood Pressure Location Rt brachial Position Sitting Pulse 86 Intake Visit Reasons: Hernia, ventral Intake Note: Patient referred for ventral hernia. Hundred lump after lifting at work. Unsure how long hernia has been present. 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 He has had this indeterminate amount of time. It has been least a few months that he has noticed it and it has become more symptomatic. He does occasionally do heavy lifting. His prior employment he did significant heavy lifting. Patient is tolerating a diet, having normal bowel habits. He has no other GI issues or complaints. Chart was reviewed patient evaluated [facility] Medical History (Updated 10/13/22 @ 10:49 by ELLA Moss) Hypertension Social History (Updated 10/13/22 @ 10:49 by ELLA Moss) Alcohol intake: never Patient Tobacco Use Status: Current someday Tobacco user Tobacco use type: Cigarette Cigarette Packs Per Day: 1 Substance Use Type: Marijuana Physical Exam Vital Signs: Last Vital Signs Pulse 86 10/13/22 10:42 BP 156/84 H 10/13/22 10:42 BMI result Body Mass Index 36.4 Const Other: Corpulent male Chest Other: Chest breath sounds bilaterally, HS 1 in 2 GI Other: Patient was examined both supine and standing with Valsalva. Corpulent abdomen. Supraumbilical a reducible ventral hernia approximately 2 cm in size. Abdomen soft benign. Bilateral groin exam negative. Genitalia within normal limits. Assessment & Plan Assessment & Plan (1) Hernia of anterior abdominal wall: Code(s): K43.9 - Ventral hernia without obstruction or gangrene Plan Risks, benefits, alternatives of supraumbilical ventral hernia repair open technique with mesh were reviewed with the patient and included but not limited to bleeding, infection, recurrence, numbness, pain, scarring bowel injury or leak and the patient wishes to proceed. Arrangements were made for this. All questions were answered. Coding Level of Care Code New Pt Level 4 (72984) Diagnoses Hernia of anterior abdominal wall K43.9
[2022-10-13 10:42] VITALS: BP 156/84; PULSE 86; BMI 36.4
== END 2022-10-13 11:38 | disposition home or self-care (01) ==
PROVIDERS: Visit Provider Surgery
DX: K43.9 Ventral hernia without obstruction or gangrene (principal)
CPT/HCPCS: 99204

== ENCOUNTER → 2022-10-13 10:38 | Outpatient (BNVA) | payer OTHER, SELFPAY | PROVIDERS: Visit Provider Surgery | DX: K43.9 Ventral hernia without obstruction or gangrene (principal) | CPT/HCPCS: 99202 ==

== ENCOUNTER 2022-11-06 07:35 | Day surgery (SDC) | payer OTHER, SELFPAY ==
[2022-11-03 14:18] VITALS: BMI 36.4
[2022-11-06] VITALS (8 sets, daily range): BP systolic 97–161; BP diastolic 58–98; PULSE 71–93; RESP 16; TEMP 35.4–36.6; O2SAT 93–97
--- NOTE | 2022-11-06 08:32 | MHC.SHP ---
Pre-Procedural Eval Section A Date of Service: 11/06/22 The patient is an INPATIENT: No Changes since office visit: No Cold of Flu in the past 2 weeks, No New Medical Problems, No Changes in Medication and No Patient answered all questions The History & Physical has been completed within 30 days and I have reviewed it.: Yes Section B Chief Complaint: Ventral hernia without obstruction or gangrene Allergies: Allergies Allergy/AdvReac Type Severity Reaction Status Date / Time No Known Allergies Allergy Verified 11/06/22 07:40 Plan I have reviewed the history and physical and performed a pertinent physical examination on my patient. No changes have occurred unless specified. Time Spent With Patient Time: Total time managing care of this patient today ____ minutes.
--- NOTE | 2022-11-06 09:41 | P.OP_ITS ---
Operative Note Operative Note Date of Service: 11/06/22 Narrative: Preoperative diagnosis: [] Incarcerated supraumbilical ventral hernia Postop diagnosis: [] Same Procedure [] repair incarcerated supraumbilical ventral hernia with Bard mesh. Surgeon: [] Praful Cook At School: [] KENNEDI Geronimo Type of Anesthesia: [] General Indication for surgery: [] Approximately 3 cm supraumbilical incarcerated ventral hernia with omental contents. Findings: [] Patient brought to the operating room, placed on operative table in supine position, after adequate level of general anesthesia was induced, the patient's abdomen which was moderately corpulent was prepped and draped in usual sterile fashion. Using a transverse incision just above the umbilicus over the hernia in question, this carried down through skin, subcutaneous tissue, down to the hernia sac. This was circumferentially dissected down the fascia and opened. Incarcerated omental contents were from the sac and returned into the abdominal cavity. Redundant sac was amputated using Bovie. Fascia margins were cleared. A Bard mesh was placed in the defect and the superficial layer of the mesh was circumferentially sutured to the surrounding fascia using interrupted 0 Ethibond suture. A completion procedure, mesh was in good position with no gaps in no tension. Wound was irrigated, secured hemostasis, and closed using interrupted inverted dermal 3-0 Vicryl sutures followed by running subcuticular 4-0 Vicryl suture. Steri-Strips and sterile dressings were applied. Wound was infiltrated 0.5% Marcaine/1% lidocaine at completion. Sponge, needle, and instrument counts reported to be correct. Patient tolerated the procedure well and emerged anesthesia stable condition. EBL minimal
== END 2022-11-06 11:30 | disposition home or self-care (01) ==
PROVIDERS: Visit Provider Surgery
PROC: (CPT 49594; principal; 2022-11-06 08:40)
DX: K43.6 Other and unspecified ventral hernia with obstruction, without gangrene (principal); I10 Essential (primary) hypertension; F17.210 Nicotine dependence, cigarettes, uncomplicated; F12.90 Cannabis use, unspecified, uncomplicated
CPT/HCPCS: 49594; 88302; C1781; J0690; J1100; J1885; J2250; J2405; J2795; J3010

== ENCOUNTER → 2022-11-06 07:35 | Outpatient (BNV) | payer OTHER, SELFPAY | PROVIDERS: Visit Provider Surgery | DX: K42.0 Umbilical hernia with obstruction, without gangrene (principal) | CPT/HCPCS: 49594 ==

== ENCOUNTER 2022-11-18 14:27 | Outpatient (AMB) | payer OTHER, SELFPAY ==
--- NOTE | 2022-11-18 14:31 | MHC.OFFVIS ---
Intake Vital Signs 11/18/22 14:36 BP 131/65 Blood Pressure Location Rt brachial Position Sitting Pulse 76 Intake Visit Reasons: S/P supra umbilical ventral hernia w/mesh Intake Note: This patient presents for a post-op assessment status post repair incarcerated supraumbilical ventral hernia with Bard mesh. Patient c/p; reports concerns with the way the surgical site. 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 He is doing well. He has minimal incisional discomfort. He has time diet based on normal bowel habits. He is increasing his activity level. [facility] Medical History (Updated 10/13/22 @ 10:49 by ELLA Moss) Hypertension Surgical History (Updated 11/18/22 @ 14:39 by ELLA Bang) History of hernia repair Social History Alcohol intake: never Patient Tobacco Use Status: Current everyday Tobacco user Tobacco use type: Cigarette Cigarette Packs Per Day: 1 Cigarettes Per Day: 10 Substance Use Type: Marijuana Physical Exam Vital Signs: Last Vital Signs Pulse 76 11/18/22 14:36 BP 131/65 11/18/22 14:36 GI Other: Abdomen soft. Wound clean dry and intact. Assessment & Plan Assessment & Plan (1) Hernia of anterior abdominal wall: Code(s): K43.9 - Ventral hernia without obstruction or gangrene Plan Patient has been given local instructions, and will follow-up p.r.n.. Coding Level of Care Code Global (88352) Diagnoses Hernia of anterior abdominal wall K43.9
[2022-11-18 14:36] VITALS: BP 131/65; PULSE 76
== END 2022-11-18 14:41 | disposition home or self-care (01) ==
PROVIDERS: Visit Provider Surgery
DX: K43.9 Ventral hernia without obstruction or gangrene (principal)
CPT/HCPCS: 99213

== ENCOUNTER → 2022-11-18 14:27 | Outpatient (BNVA) | payer OTHER, SELFPAY | PROVIDERS: Visit Provider Surgery | DX: Z48.815 Encounter for surgical aftercare following surgery on the digestive system (principal) | CPT/HCPCS: 99212 ==

== ENCOUNTER 2024-02-09 09:50 | Outpatient (AMB) | payer OTHER, SELFPAY ==
--- NOTE | 2024-02-09 09:46 | A.OFFVIS_ITS ---
Vital Signs 3 02/09/24 10:06 Height 5 ft 11 in Weight 319 lb BMI 44.5 BP 148/75 H Blood Pressure Location Lt brachial Position Sitting Pulse 87 Intake Visit Reasons: Recurrent umbilical hernia Intake Note: Patient is seen in office for evaluation of an umbilical hernia. 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 Accompanied by: Self / Same As Patient Allergies No Known Allergies Allergy (Verified 02/09/24 09:57) Medication List - Last Reconciled 02/09/24 by Edwardo Vaughan MD celecoxib (Celebrex) 200 mg PO BID cyclobenzaprine 10 mg PO BEDTIME lisinopril-hydrochlorothiazide 20-25 mg 1 tab PO DAILY nicotine (polacrilex) (Nicorette) 4 mg buccal Q2H omeprazole 20 mg PO DAILY quetiapine (Seroquel) 25 mg PO DAILY sennosides (Natural Senna Laxative) 8.6 mg PO DAILY tirzepatide (weight loss) (Zepbound) 2.5 mg subcut QWEEK trazodone 100 mg PO BEDTIME PRN varenicline (Chantix) 1 mg PO BID HPI Comments Details: 43-year-old male patient presenting for evaluation of a recurrent abdominal wall hernia which apparently was previously repaired approximately 1 year ago. He states this was repaired at [facility] although we have no record of any surgery or previous visits to our office. He states the recurrent hernia began soon after the previous repair which apparently was performed with mesh. He reports developing increased abdominal pain, nausea and reflux but denies diarrhea or constipation. He feels the lump has increased in size significantly over the past year. [facility], [facility] Medical History (Updated 02/09/24 @ 10:16 by Edwardo Vaughan MD) Incisional hernia History of substance abuse GERD (gastroesophageal reflux disease) Obesity Depression Low back pain Hypertension Surgical History (Updated 02/09/24 @ 10:06 by ELLA Harris) Hx of umbilical hernia repair (~2022) Social History Alcohol intake: never Patient Tobacco Use Status: Former Tobacco user Review of Systems Const All systems reviewed & are unremarkable except as noted in HPI and below Denies chills, Denies fever(s), Denies headache(s), Denies poor appetite and Denies weakness ENT Denies headache(s) Card Denies chest pain, Denies irregular heart rhythm, Denies palpitations and Denies dyspnea Resp Denies cough, Denies excessive phlegm production and Denies dyspnea GI Reports abdominal pain, Reports bloating, Denies change in bowel habits, Denies constipation, Denies heartburn, Denies diarrhea, Reports nausea and Denies vomiting Denies difficulty urinating and Denies urinary frequency Musc Denies back pain, Denies muscle weakness and Denies numbness Skin/Breast Denies changing lesions and Denies unusual bruising Neuro Denies headache(s), Denies numbness, Denies paresthesias and Denies weakness Psych Denies anxiety and Denies depression Endo Denies palpitations Arnaldo/Lymph Denies lymphadenopathy Physical Exam Const General: cooperative and no acute distress Nutritional Appearance: well nourished Orientation/consciousness: patient oriented x3 Limitations: no limitations HEENT Head: Yes normocephalic and Yes atraumatic Ears: hearing grossly normal bilaterally Resp Effort & Inspection: normal respiratory effort, no audible wheezes, no cough and no respiratory distress Cardio Jugular venous distension: no JVD GI Other: Palpable hernia noted in the upper abdomen which increases with Valsalva but reduces in the supine position with light pressure. There is mild tenderness to palpation. No overlying skin changes are appreciated. A well-healed incision is located below the hernia which is transverse. The actual hernia defect measures approximately 9 cm in diameter. Inspection: Yes normal to inspection and Yes obesity Palpation (GI): Tenderness to palpation present (GI) Abdomen image: 2 1. Previous incision supraumbilical 2. Hernia in mid upper abdomen noted in the standing position, 9 cm in diameter. Reducible while in the supine position. Also noted is a diastasis recti in the upper abdomen as well. Skin Other: Warm, dry, no rash Neuro General: patient oriented x3 Extrem General: Yes no clubbing, cyanosis or edema Assessment & Plan Assessment & Plan (1) Incisional hernia: Code(s): K43.2 - Incisional hernia without obstruction or gangrene Category: Medical Qualifiers: Obstruction and gangrene presence: without obstruction or gangrene Q ualified Code(s): K43.2 - Incisional hernia without obstruction or gangrene Plan 43-year-old male patient presenting with a recurrent incisional hernia located in the upper abdomen measuring approximately 9 cm, found on examination to be reducible. No information is available regarding his previous repair including site of repair and type of mesh used for the repair. I do recommend repair of this recurrent incisional hernia and after discussion of the procedure, risks, and alternatives, he consents to repair of the recurrent incisional hernia with mesh. This will be scheduled as a short-stay surgery at his earliest convenience. Coding Level of Care Code New Pt Level 4 (61070) Diagnoses Incisional hernia, without obstruction or gangrene K43.2 Obstruction and gangrene presence: without obstruction or gangrene
[2024-02-09 10:06] VITALS: BP 148/75; PULSE 87; BMI 44.5
== END 2024-02-09 10:07 | disposition home or self-care (01) ==
PROVIDERS: PCP Physician Assistant Medical; Visit Provider Surgery
DX: K43.2 Incisional hernia without obstruction or gangrene (principal)
CPT/HCPCS: 99204

== ENCOUNTER → 2024-02-09 09:50 | Outpatient (BNVA) | payer OTHER, SELFPAY | PROVIDERS: PCP Physician Assistant Medical; Visit Provider Surgery | DX: K43.2 Incisional hernia without obstruction or gangrene (principal) | CPT/HCPCS: 99202 ==

== ENCOUNTER 2024-04-04 09:26 | Day surgery (SDC) | payer OTHER, SELFPAY ==
[2024-03-31 11:33] VITALS: BMI 44.5
[2024-04-04] VITALS (13 sets, daily range): BP systolic 123–155; BP diastolic 66–91; PULSE 61–77; RESP 14–22; TEMP 36.4–36.8; O2SAT 91–98; BMI 44.9
[2024-04-04 10:13] LABS: Amphetamine Screen Urine Not Detected (Not Detect); Barbiturates, Urine Not Detected (Not Detect); Benzodiazepines Screen Urine Not Detected (Not Detect); Buprenorphine Scr Not Detected (Not Detect); Cannabinoid Screen Urine POSITIVE (Not Detect); Cocaine Screen Urine Not Detected (Not Detect); Fentanyl, urine Not Detected (Not Detect); Methadone Screen, Urine Not Detected (Not Detect); Opiate Screen Urine Not Detected (Not Detect); Oxycodone Screen Urine Not Detected (Not Detect); Phencyclidine Screen Urine Not Detected (Not Detect)
[2024-04-04] MEDS: Lactated Ringers 1,000 ML 100 ML IVCONT (10:16)
--- NOTE | 2024-04-04 10:47 | MHC.SHP ---
Pre-Procedural Eval Section A - 24 Hr Update-Section A only Date of Service: 04/04/24 The patient is an INPATIENT: No Changes since office visit: Yes Patient answered all questions; No Cold of Flu in the past 2 weeks, No New Medical Problems and No Changes in Medication The patient has been examined within 24 hours of the surgical procedure. The History & Physical has been completed within 30 days and I have reviewed it.: No Section B - Complete if H&P > 30 days Chief Complaint: Incisional hernia without obstruction or gangrene Details of Present Illness: no changes in symptoms since office evaluation Relevant Family History (Specify if Yes): No Relevant Social History: Other (specify) Present Medications: see Short Stay Collaborative assessment Medical History: Significant History (GERD. HTN) History of Previous Operations: Relevant previous surgery/procedure and date(s) (ventral hernia repair) Allergies: Allergies Allergy/AdvReac Type Severity Reaction Status Date / Time No Known Allergies Allergy Verified 02/17/24 15:00 Review of Systems Sugical H&P ROS: Negative: Constitution, Cardiovascular, Respiratory, Gastrointestinal and Musculoskeletal Exam Surgical H&P Exam: Normal: Heart, Normal: Lungs, Normal: Extremities, Normal: Abdomen and Normal: Skin Plan Diagnosis/Plan: Unchanged I have reviewed the history and physical and performed a pertinent physical examination on my patient. No changes have occurred unless specified. Time Spent With Patient Time: Total time managing care of this patient today ____ minutes.
--- NOTE | 2024-04-04 12:14 | HO.ANESPROP2 ---
[facility] Active Problems Active Problems: All Active Problems Hernia of anterior abdominal wall (Acute) Incisional hernia (Acute) History of substance abuse (Acute) GERD (gastroesophageal reflux disease) (Acute) Obesity (Acute) Low back pain (Acute) Hypertension (Acute) Past Medical History Medical History (Updated 03/31/24 @ 11:36 by Emperatriz Spangler RN) Incisional hernia History of substance abuse GERD (gastroesophageal reflux disease) Obesity Depression Low back pain Hypertension Hypertension Family History Family history of problems with anesthesia: No Surgical History Surgical History (Updated 03/31/24 @ 11:16 by Emperatriz Spangler RN) Hx of umbilical hernia repair (~2022) History of hernia repair History of Problems with Anesthesia: No Social History Social History (Updated 03/31/24 @ 11:42 by Emperatriz Spangler RN) Are you a primary healthcare manager to a significant other at home: No Do you presently have visiting nurse or other home services: No Alcohol intake: never Patient Tobacco Use Status: Former Tobacco user Tobacco use type: Cigarette Substance Use Type: Marijuana Substance Use Frequency: Daily Have you been hit, kicked, punched, or otherwise hurt by someone within the past year? If so, by whom?: No Are you DNR?: No Advance Directives: No Advance Directives Information Provided: Yes Recently lost weight without trying: No Nutrition Risks: No Nutritional Risk Meds Allergies Allergy/AdvReac Type Severity Reaction Status Date / Time No Known Allergies Allergy Verified 02/17/24 15:00 Active Medications: Current Medications Lactated Ringer's (Lr) 1,000 mls @ 100 mls/hr IVCONT .Q10H JAQUELIN Last Admin: 04/04/24 10:16 Dose: 100 mls/hr Home Medications ?Medication ?Instructions ?Recorded ?Confirmed ?Last Taken ?Type celecoxib 200 mg capsule (Celebrex) 200 mg PO BID 02/09/24 03/31/24 Unknown History cyclobenzaprine 10 mg tablet 10 mg PO BEDTIME 02/09/24 03/31/24 Unknown History lisinopril 20 1 tab PO DAILY 02/09/24 03/31/24 04/04/24 History mg-hydrochlorothiazide 25 mg tablet nicotine (polacrilex) 4 mg gum 4 mg buccal Q2H 02/09/24 03/31/24 Unknown History (Nicorette) omeprazole 20 mg capsule,delayed 20 mg PO DAILY 02/09/24 03/31/24 Unknown History release quetiapine 25 mg tablet (Seroquel) 25 mg PO DAILY 02/09/24 03/31/24 Unknown History sennosides 8.6 mg tablet (Natural 8.6 mg PO DAILY 02/09/24 03/31/24 Unknown History Senna Laxative) tirzepatide (weight loss) 2.5 2.5 mg subcut QWEEK 02/09/24 03/31/24 Unknown History mg/0.5 mL subcutaneous pen injector (Zepbound) trazodone 100 mg tablet 100 mg PO BEDTIME PRN Insomnia 02/09/24 03/31/24 Unknown History varenicline 1 mg tablet (Chantix) 1 mg PO BID 02/09/24 03/31/24 Unknown History Exam Height,Weight and Vital Signs: Height 5 ft 11 in Weight 146.057 kg Last Vital Signs Temp 98.2 F 04/04/24 10:06 Pulse 77 04/04/24 10:06 Resp 18 04/04/24 10:06 BP 139/85 04/04/24 10:06 Pulse Ox 98 04/04/24 10:06 O2 Del Method Room Air 04/04/24 10:06 Pertinent Lab Results Pertinent Lab Results: uLaboratory Tests 04/04/24 09:30 Urine Opiates Screen Not Detected Ur Buprenorphine Scrn Not Detected Ur Oxycodone Screen Not Detected Urine Methadone Screen Not Detected Urine Fentanyl Screen Not Detected Ur Barbiturates Screen Not Detected Ur Phencyclidine Scrn Not Detected Ur Amphetamines Screen Not Detected U Benzodiazepines Scrn Not Detected Urine Cocaine Screen Not Detected U Marijuana (THC) Screen POSITIVE H Airway Mallampati Class: IV TM Dist: >3cm Neck ROM: Full Assessment and Plan Assessment Anesthesia Assessment: Anesthesia Plan Discussed and Chart Reviewed Final Anesthetic Review Family History of Problems with Anesthesia: No History of Problems with Anesthesia: No NPO: Yes ASA Class: III Final Preanesthetic Review: No Changes in Pt Med Stat, Meds/Allgs Chart Reviewed, Consent Obtained/Reviewed and Anes Risks/Benef Reviewed Patient Risk: Intermediate Procedure Risk: Low Anesthetic Plan Anesthetic Plan: GA Disposition: Standard PACU
--- NOTE | 2024-04-04 12:35 | P.OP_ITS ---
Operative Note Operative Note Date of Service: 04/04/24 Narrative: Preoperative diagnosis: Recurrent incisional hernia Postoperative diagnosis: Same Procedure: Repair of recurrent incisional hernia with mesh Surgeon: Edwardo Vaughan MD Wire Spring Relay Adjuster: Neetu Geronimo PA-C Anesthesia: General endotracheal Indications for procedure: 43-year-old male patient with a previous history of a ventral hernia repair now presenting with a large recurrence in the upper abdomen. On examination the hernia increases with Valsalva maneuvers but reduces in the supine position with light pressure. Operative findings: Large incisional hernia measuring approximately 5 cm in diameter. Previous hernia mesh noted to the left side of the fascial defect. Specimen: Hernia sac Estimated blood loss: 20 mL Complications: None Procedure details: Patient was brought to the OR placed in a supine position. After administering general anesthesia the patient's abdomen was prepped with ChloraPrep and draped in a sterile fashion. A surgical time-out was called the consent confirmed. Patient received preoperative antibiotics and Venodyne boots were in place. Local anesthesia was infiltrated in the midline directly over the palpable hernia. Incision was then made with a scalpel and carried out through subcutaneous tissue up to the hernia sac. Combination of sharp and blunt dissection was then used to dissect the hernia sac from the surrounding subcutaneous tissue. Fascial defect was then identified. Adherent omental fat was lysed using electrocautery. Circumferentially the fascia was identified grasped with a Leonid clamp. The omentum and bowel were then reduced into the abdominal cavity. A 8 cm round Ventralex mesh was then obtained. This was secured in 4 quadrants using a 0 Tycron suture and placed into the abdominal cavity using a parachute technique. Additional sutures were placed circumferentially to secure the mesh to the fascial edges. Fascia was then closed over the mesh using [id number] Tycron sutures. Wounds were then irrigated with saline solution and suctioned dry. 5 mL of Zenrelef was then instilled over the fascial closure. Kvng's fascia and dermis was then closed using interrupted 3-0 Polysorb sutures. Skin was then closed using skin mariah. Sterile dressings consisting of 4 x 4 gauze and Tegaderm were then applied. The patient tolerated the procedure well. Sponge, instrument, and needle counts reported as correct. The patient was transferred to PACU in stable condition.
[2024-04-04] MEDS: Acetaminophen 1,000 MG/100 ML PIGGYBACK 400 MG IV (12:58)
[2024-04-04] MEDS: fentaNYL citrate/PF 100 MCG/2 ML VIAL 50 MCG IVPUSH (13:26)
== END 2024-04-04 14:38 | disposition home or self-care (01) ==
PROVIDERS: Nurse Practitioner; PCP Physician Assistant Medical; Visit Provider Surgery
PROC: (CPT 49615; principal; 2024-04-04 12:00)
DX: K43.2 Incisional hernia without obstruction or gangrene (principal); K21.9 Gastro-esophageal reflux disease without esophagitis; I10 Essential (primary) hypertension; M54.50 Low back pain, unspecified; E66.9 Obesity, unspecified; Z68.41 Body mass index [BMI] 40.0-44.9, adult; F11.11 Opioid abuse, in remission; Z79.899 Other long term (current) drug therapy; Z79.85 Long-term (current) use of injectable non-insulin antidiabetic drugs; Z98.890 Other specified postprocedural states; Z87.891 Personal history of nicotine dependence
CPT/HCPCS: 49615; 80307; 88302; C1781; C9088; J0131; J0690; J1100; J2003; J2250; J2405; J2704; J2795; J3010

== ENCOUNTER → 2024-04-04 09:26 | Outpatient (BNV) | payer OTHER, SELFPAY | PROVIDERS: PCP Physician Assistant Medical; Visit Provider Surgery | DX: K43.2 Incisional hernia without obstruction or gangrene (principal) | CPT/HCPCS: 49615 ==

== ENCOUNTER 2024-04-14 10:50 | Outpatient (AMB) | payer OTHER, SELFPAY ==
--- NOTE | 2024-04-14 10:48 | A.OFFVIS_ITS ---
Vital Signs 04/14/24 10:57 Height 5 ft 11 in Weight 314 lb BMI 43.8 BP 145/86 H Blood Pressure Location Lt brachial Position Sitting Pulse 85 Intake Visit Reasons: s/p Rp Incisional Hernia w/mesh Intake Note: Patient is seen in office for post op assessment post recurrent incisional hernia repair. Pt c/o: some redness around the area due to the tape rash surgery:04/04/24 Search Engine Optimization Analyst Required: No Accompanied by: Family/Other Allergies No Known Allergies Allergy (Verified 04/14/24 10:56) HPI Comments Details: 43-year-old male patient status post repair of a large incisional hernia in the upper abdomen returning 1 week postoperative. He feels much improved and has not taken any pain medication postoperatively. He notes a small amount of discharge from the mariah. He denies fever or chills. [facility] Medical History (Updated 03/31/24 @ 11:36 by Emperatriz Spangler RN) Incisional hernia History of substance abuse GERD (gastroesophageal reflux disease) Obesity Depression Low back pain Hypertension Hypertension Surgical History (Updated 04/13/24 @ 09:45 by ELLA Harris) History of incisional hernia repair (04/04/24) Hx of umbilical hernia repair (~2022) History of hernia repair Social History (Updated 03/31/24 @ 11:42 by Emperatriz Spangler RN) Are you a primary pet caretaker to a significant other at home: No Do you presently have visiting nurse or other home services: No Alcohol intake: never Patient Tobacco Use Status: Former Tobacco user Tobacco use type: Cigarette Substance Use Type: Marijuana Physical Exam Const General: no acute distress Nutritional Appearance: well nourished Orientation/consciousness: patient oriented x3 Resp Effort & Inspection: normal respiratory effort GI Other: Midline incision intact with in-situ mariah. No erythema is noted and no hernia appreciated with Valsalva maneuvers. 1/2 of the mariah removed and Steri-Strips applied. Neuro General: patient oriented x3 Extrem General: Yes normal to inspection Assessment & Plan Assessment & Plan (1) Incisional hernia: Code(s): K43.2 - Incisional hernia without obstruction or gangrene Category: Medical Qualifiers: Obstruction and gangrene presence: without obstruction or gangrene Qualified Code(s): K43.2 - Incisional hernia without obstruction or gangrene Plan 43-year-old male patient returning 1 week following repair of an incisional hernia with mesh. His wounds are clean, dry, and intact. 1/2 of the mariah were removed and Steri-Strips applied. He will return in 1 week for remaining mariah to be removed. Coding Level of Care Code Global (97376) Diagnoses Incisional hernia, without obstruction or gangrene K43.2 Obstruction and gangrene presence: without obstruction or gangrene
[2024-04-14 10:57] VITALS: BP 145/86; PULSE 85; BMI 43.8
== END 2024-04-14 11:05 | disposition home or self-care (01) ==
PROVIDERS: PCP Physician Assistant Medical; Visit Provider Surgery
DX: K43.2 Incisional hernia without obstruction or gangrene (principal)
CPT/HCPCS: 99212

== ENCOUNTER → 2024-04-14 10:50 | Outpatient (BNVA) | payer OTHER, SELFPAY | PROVIDERS: PCP Physician Assistant Medical; Visit Provider Surgery | DX: K43.2 Incisional hernia without obstruction or gangrene (principal) | CPT/HCPCS: 99212 ==

== ENCOUNTER 2024-04-21 13:45 | Outpatient (AMB) | payer OTHER, SELFPAY ==
--- NOTE | 2024-04-21 14:04 | A.OFFVIS_ITS ---
Vital Signs 04/21/24 14:07 Height 5 ft 11 in Weight 313 lb 0.902 oz BMI 43.7 Intake Visit Reasons: s/p 1 wk follow up Rp Incisional Hernia w/mesh Intake Note: Patient is seen in office for one week follow up visit, post recurrent incisional hernia repair. Pt c/o: here for removal of remaining mariah, area is red and minimal discharge Supervisor Partial Denture Department Required: No Accompanied by: Self / Same As Patient Allergies No Known Allergies Allergy (Verified 04/21/24 14:08) HPI Comments Details: Tony returns today for wound check and removal of the remaining mariah. He denies any continued abdominal pain but does have occasional discharge from the mariah. He denies any fever or chills. FOR[facility]LY [facility] Medical History Incisional hernia History of substance abuse GERD (gastroesophageal reflux disease) Obesity Depression Low back pain Hypertension Hypertension Surgical History History of incisional hernia repair (04/04/24) Hx of umbilical hernia repair (~2022) History of hernia repair Social History Are you a primary care associate to a significant other at home: No Do you presently have visiting nurse or other home services: No Alcohol intake: never Patient Tobacco Use Status: Former Tobacco user Tobacco use type: Cigarette Substance Use Type: Marijuana Physical Exam Vital Signs: BMI result Body Mass Index 43.7 Const General: no acute distress Nutritional Appearance: well nourished Orientation/consciousness: patient oriented x3 Resp Effort & Inspection: normal respiratory effort, no audible wheezes, no cough and no retractions GI Other: Midline incision is intact with 2 areas of separation and several tears from the staple line. The remaining 6 mariah removed and Steri-Strips applied. A dry sterile dressing was applied. Neuro General: patient oriented x3 Assessment & Plan Assessment & Plan (1) Incisional hernia: Code(s): K43.2 - Incisional hernia without obstruction or gangrene Category: Medical Qualifiers: Obstruction and gangrene presence: without obstruction or gangrene Qualified Code(s): K43.2 - Incisional hernia without obstruction or gangrene Plan 43-year-old male status post repair of an incisional hernia with mesh. He should continue to avoid lifting greater than 10 lb and return approximately 3 weeks for follow-up examination. He should continue to apply dry dressing until no further discharge is noted. Coding Level of Care Code Global (31296) Diagnoses Incisional hernia, without obstruction or gangrene K43.2 Obstruction and gangrene presence: without obstruction or gangrene
[2024-04-21 14:07] VITALS: BMI 43.7
== END 2024-04-21 14:31 | disposition home or self-care (01) ==
PROVIDERS: PCP Physician Assistant Medical; Visit Provider Surgery
DX: K43.2 Incisional hernia without obstruction or gangrene (principal)
CPT/HCPCS: 99212

== ENCOUNTER → 2024-04-21 13:45 | Outpatient (BNVA) | payer OTHER, SELFPAY | PROVIDERS: PCP Physician Assistant Medical; Visit Provider Surgery | DX: K43.2 Incisional hernia without obstruction or gangrene (principal) | CPT/HCPCS: 99212 ==

== ENCOUNTER 2024-05-12 13:42 | Outpatient (AMB) | payer OTHER, SELFPAY ==
--- NOTE | 2024-05-12 13:50 | A.OFFVIS_ITS ---
Vital Signs 3 05/12/24 13:58 Height 5 ft 11 in Weight 331 lb 2 oz BMI 46.2 BP 189/94 H Blood Pressure Location Lt brachial Position Sitting Pulse 93 Intake Visit Reasons: s/p 3 wk follow up Rp Incisional Hernia w/mesh Intake Note: Patient is seen in office for one month follow up visit, post incisonal hernia repair. Pt c/o: den ies any concerns at the time of visit Flatbed Driver Required: No Accompanied by: Family/Other Allergies No Known Allergies Allergy (Verified 05/12/24 13:59) HPI Comments Details: 44-year-old male returning 1 month following repair of a ventral hernia in the upper abdomen. He feels well and denies any ongoing abdominal symptoms. He denies nausea, vomiting, fever or chills. [facility] Medical History Incisional hernia History of substance abuse GERD (gastroesophageal reflux disease) Obesity Depression Low back pain Hypertension Hypertension Surgical History History of incisional hernia repair (04/04/24) Hx of umbilical hernia repair (~2022) History of hernia repair Social History Are you a primary patient care technician instructor to a significant other at home: No Do you presently have visiting nurse or other home services: No Alcohol intake: never Patient Tobacco Use Status: Former Tobacco user Tobacco use type: Cigarette Substance Use Type: Marijuana Physical Exam Vital Signs: Last Vital Signs Pulse 93 05/12/24 13:58 BP 189/94 H 05/12/24 13:58 BMI result Body Mass Index 46.2 Const General: comfortable Nutritional Appearance: well nourished Orientation/consciousness: patient oriented x3 Resp Effort & Inspection: normal respiratory effort GI Other: Upper midline incision is clean and intact. No redness or discharge is identified. No hernias noted with Valsalva maneuvers. Inspection: Yes normal to inspection Palpation (GI): Soft to palpation, nontender, no guarding and not rigid Abdomen image: 2 1. Neuro General: patient oriented x3 Assessment & Plan Assessment & Plan (1) Incisional hernia: Code(s): K43.2 - Incisional hernia without obstruction or gangrene Category: Medical Qualifiers: Obstruction and gangrene presence: without obstruction or gangrene Q ualified Code(s): K43.2 - Incisional hernia without obstruction or gangrene Plan 44-year-old male status post repair of a ventral hernia of the abdominal wall. He tolerated the procedure well and his wounds are healing nicely. He may gradually increase his lifting over the next several weeks. He is welcome to return for any changes. Coding Level of Care Code Global (94058) Diagnoses Incisional hernia, without obstruction or gangrene K43.2 Obstruction and gangrene presence: without obstruction or gangrene
[2024-05-12 13:58] VITALS: BP 189/94; PULSE 93; BMI 46.2
== END 2024-05-12 14:09 | disposition home or self-care (01) ==
PROVIDERS: PCP Physician Assistant Medical; Visit Provider Surgery
DX: K43.2 Incisional hernia without obstruction or gangrene (principal)
CPT/HCPCS: 99212

== ENCOUNTER → 2024-05-12 13:42 | Outpatient (BNVA) | payer OTHER, SELFPAY | PROVIDERS: PCP Physician Assistant Medical; Visit Provider Surgery | DX: K43.2 Incisional hernia without obstruction or gangrene (principal) | CPT/HCPCS: 99212 ==

== ENCOUNTER 2024-09-21 09:45 | Outpatient (AMB) | payer OTHER, SELFPAY ==
--- NOTE | 2024-09-21 12:09 | MHC.OFFVISWM ---
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 Allergies No Known Allergies Allergy (Verified 09/21/24 12:09) Medication List - Last Reconciled 09/21/24 by August Gill MD celecoxib (Celebrex) 200 mg PO BID cyclobenzaprine 10 mg PO BEDTIME lisinopril-hydrochlorothiazide 20-25 mg 1 tab PO DAILY omeprazole 20 mg PO DAILY quetiapine (Seroquel) 25 mg PO DAILY sennosides (Natural Senna Laxative) 8.6 mg PO DAILY trazodone 100 mg PO BEDTIME PRN HPI HPI 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: Details: Start time: 12.01pm, End time: 12.46pm ?I spent 40 minutes speaking with the patient on the phone plus an additional 5 minutes reviewing and updating records for a total of 45 minutes HPI Comments Details: Previous weight loss efforts: exercise and self diets Wakes up: 6am, Sleeps: 10pm Breakfast: skips Lunch: skips Dinner: 6pm (chicken, pork, rice, beans, pasta) Snacks: 8pm (a second smaller dinner) Exercise: none Beverages: Coffee (1 cup/d with cream and sugar), tea: hot tea (1 cup/wk), soda: regular Pepsi (1lt/day), juice: ice tea, ETOH: none PFSH Medical History (Updated 09/21/24 @ 12:14 by August Gill MD) Insomnia Back pain Morbid obesity Incisional hernia History of substance abuse GERD (gastroesophageal reflux disease) Obesity Depression Low back pain Hypertension Hypertension Surgical History History of incisional hernia repair (04/04/24) Hx of umbilical hernia repair (~2022) History of hernia repair Social History Are you a primary critical care technician to a significant other at home: No Do you presently have visiting nurse or other home services: No Alcohol intake: never Patient Tobacco Use Status: Former Tobacco user Tobacco use type: Cigarette Substance Use Type: Marijuana Telehealth Telehealth Telehealth Platform: Telephone Location of provider rendering services: practice address Location of patient: address on file Patient Identification confirmed using: Name, : Yes Telehealth method: voice only Patient verbally consented to treatment: Yes Patient verbally consented to billing insurance company: Yes Patient informed of any privacy concerns related to visit: Yes Minutes spent on Phone/Video with Pt.: 45 Assessment & Plan Assessment & Plan (1) Morbid obesity: Code(s): E66.01 - Morbid (severe) obesity due to excess calories Category: Medical Plan: 1.? Nutritional counseling. Start with one premade PREMIER protein (buy at [employer] or [employer]) shake (8oz of Premier shake and NOT the whole bottle) at 7am-9am, one protein bar (Fit Crunch protein bar, buy at [employer] or [employer]) at 10am-12pm, another premade PREMIER protein shake (8oz of Premier shake and NOT the whole bottle) at 1pm-3pm, another Fit Crunch protein bar at 4pm-6pm, dinner at 7pm (10 forks of protein and 10 forks of salad/vegetables) and another HALF protein bar after dinner at 9pm-10pm So you do 2 protein shakes, 2.5 protein bars and one meal per day. Meal to include lean meat (beef, fish, pork, turkey, chicken), or faroese yogurt, or egg whites, or beans with a salad with olive oil and fruits (berries, pears, apples, kiwi). Avoid salt, breads, potatoes, rice, pasta, desserts. 3. Each shake would be drunk slowly, like coffee in a period of 2 hours. 4. Cut each bar in 4 pieces and eat each piece in 30min ?to make each bar last 2 hours. 5. I emphasized the importance of measuring accurately the food portion and measure it when serving the food in plate 6. The meal portions include 10 full-size forks of meat and 10 full-size forks of salad. You always eat the meat portion but you can replace up to 5 forks for salad/vegetables with rice, potatoes or pasta, or a fruit ?if you like. The less you do it the better weight loss will be. 7. One full-size fork is what it can be scooped on the fork without falling aside and not what can be bit with the fork. Use regular forks like those you find in a typical restaurant. 8.? Please buy the body composition scale we discussed and send me weight measurements as soon as possible and then once a week. Always include your diet and exercise plan. 9. Start walking outside daily, tracking calories with a goal of 300 calories per day, daily. Goal is to burn 2000 calories per week on exercise, which means either 300 calories daily, or 400 calories 5 days per week, or 500 calories 4 days per week, or 650 calories 3 days per week. 10. The best choice would be to purchase a stationary bike, elliptical or treadmill at home that can track calories. Let me know if you do so I can give you an exercise plan. 11. Goal is to lose at least 1.5-2lbs per week 12. Goal to lose 10% of your weight before surgery, which is about 38lbs. Ultimate weight goal: 320lbs before surgery 13. Please follow the diet plan exactly without any change. If you don't like something about the plan or you feel hungry you need to communicate with me so I can help you revise the plan. You should not change the plan yourself Orders: Orders Hemoglobin A1c Today E66.01 - Morbid (severe) obesity due to excess calories, I10 - Essential (primary) hypertension, K21.9 - Gastro-esophageal reflux disease without esophagitis Lipid Panel Today E66.01 - Morbid (severe) obesity due to excess calories, I10 - Essential (primary) hypertension, K21.9 - Gastro-esophageal reflux disease without esophagitis IRON PROFILE Today E66.01 - Morbid (severe) obesity due to excess calories, I10 - Essential (primary) hypertension, K21.9 - Gastro-esophageal reflux disease without esophagitis Comprehensive Met. Panel Today E66.01 - Morbid (severe) obesity due to excess calories, I10 - Essential (primary) hypertension, K21.9 - Gastro-esophageal reflux disease without esophagitis Vitamin B12 and Folate Today E66.01 - Morbid (severe) obesity due to excess calories, I10 - Essential (primary) hypertension, K21.9 - Gastro-esophageal reflux disease without esophagitis TSH reflex Free T4 Today E66.01 - Morbid (severe) obesity due to excess calories, I10 - Essential (primary) hypertension, K21.9 - Gastro-esophageal reflux disease without esophagitis Ferritin Today E66.01 - Morbid (severe) obesity due to excess calories, I10 - Essential (primary) hypertension, K21.9 - Gastro-esophageal reflux disease without esophagitis Vitamin D 25-OH Total Today E66.01 - Morbid (severe) obesity due to excess calories, I10 - Essential (primary) hypertension, K21.9 - Gastro-esophageal reflux disease without esophagitis FL upper GI w air Today E66.01 - Morbid (severe) obesity due to excess calories, I10 - Essential (primary) hypertension, K21.9 - Gastro-esophageal reflux disease without esophagitis Insulin Today E66.01 - Morbid (severe) obesity due to excess calories, I10 - Essential (primary) hypertension, K21.9 - Gastro-esophageal reflux disease without esophagitis H Pylori Breath Test Today E66.01 - Morbid (severe) obesity due to excess calories, I10 - Essential (primary) hypertension, K21.9 - Gastro-esophageal reflux disease without esophagitis Complete Blood Count Auto Diff Today E66.01 - Morbid (severe) obesity due to excess calories, I10 - Essential (primary) hypertension, K21.9 - Gastro-esophageal reflux disease without esophagitis Zinc Today E66.01 - Morbid (severe) obesity due to excess calories, I10 - Essential (primary) hypertension, K21.9 - Gastro-esophageal reflux disease without esophagitis C Reactive Protein Today E66.01 - Morbid (severe) obesity due to excess calories, I10 - Essential (primary) hypertension, K21.9 - Gastro-esophageal reflux disease without esophagitis Vitamin B1 Today E66.01 - Morbid (severe) obesity due to excess calories, I10 - Essential (primary) hypertension, K21.9 - Gastro-esophageal reflux disease without esophagitis Vitamin A Today E66.01 - Morbid (severe) obesity due to excess calories, I10 - Essential (primary) hypertension, K21.9 - Gastro-esophageal reflux disease without esophagitis US abdomen comp w elastography Today E66.01 - Morbid (severe) obesity due to excess calories, I10 - Essential (primary) hypertension, K21.9 - Gastro-esophageal reflux disease without esophagitis XR chest 2V Today E66.01 - Morbid (severe) obesity due to excess calories, I10 - Essential (primary) hypertension, K21.9 - Gastro-esophageal reflux disease without esophagitis ECG 12 lead EKG Today E66.01 - Morbid (severe) obesity due to excess calories, I10 - Essential (primary) hypertension, K21.9 - Gastro-esophageal reflux disease without esophagitis Referrals Nutrition/Dietitian Referral E66.01 - Morbid (severe) obesity due to excess calories, I10 - Essential (primary) hypertension, K21.9 - Gastro-esophageal reflux disease without esophagitis Behavioral Health Referral E66.01 - Morbid (severe) obesity due to excess calories, I10 - Essential (primary) hypertension, K21.9 - Gastro-esophageal reflux disease without esophagitis
[2024-09-21 12:19] VITALS: BMI 50.0
== END 2024-09-21 12:47 | disposition home or self-care (01) ==
LOC: HO.HBS 09:45
PROVIDERS: PCP Physician Assistant Medical; Visit Provider Surgery
DX: E66.01 Morbid (severe) obesity due to excess calories (principal)
CPT/HCPCS: 99204

== ENCOUNTER 2024-10-04 10:46 | Day surgery (SDC) | payer OTHER, SELFPAY ==
--- NOTE | 2024-10-03 09:46 | HO.ANESPROP2 ---
Documented by User: Shereen Lucia NP 10/03/24 09:51 HPI - Anesthesia Eval Consult details Narrative: 44yo M for Upper Endoscopy BMI 50 s/p hernia repair 03/2024 with GETA 7.5 PMFSH Active Problems Active Problems: All Active Problems Insomnia (Acute) Back pain (Acute) Morbid obesity (Acute) Hernia of anterior abdominal wall (Acute) Incisional hernia (Acute) History of substance abuse (Acute) GERD (gastroesophageal reflux disease) (Acute) Obesity (Acute) Low back pain (Acute) Hypertension (Acute) Past Medical History Medical History Insomnia Back pain Morbid obesity Incisional hernia History of substance abuse GERD (gastroesophageal reflux disease) Obesity Depression Low back pain Hypertension Hypertension Family History Family history of problems with anesthesia: No Surgical History Surgical History History of incisional hernia repair (04/04/24) Hx of umbilical hernia repair (~2022) History of hernia repair History of Problems with Anesthesia: No Social History Social History Are you a primary health care liaison to a significant other at home: No Do you presently have visiting nurse or other home services: No Alcohol intake: never Patient Tobacco Use Status: Former Tobacco user Tobacco use type: Cigarette Use of substances other than those prescribed or required for medical reasons: Yes Substance Use Type: Marijuana Are you DNR?: No Advance Directives: No Advance Directives Information Provided: Yes Poor oral hygiene: No Meds Allergies Allergy/AdvReac Type Severity Reaction Status Date / Time No Known Allergies Allergy Verified 09/21/24 12:09 Home Medications ?Medication ?Instructions ?Recorded ?Confirmed ?Last Taken ?Type celecoxib 200 mg capsule (Celebrex) 200 mg PO BID 02/09/24 09/21/24 Unknown History cyclobenzaprine 10 mg tablet 10 mg PO BEDTIME 02/09/24 09/21/24 Unknown History lisinopril 20 1 tab PO DAILY 02/09/24 10/04/24 10/04/24 History mg-hydrochlorothiazide 25 mg tablet omeprazole 20 mg capsule,delayed 20 mg PO DAILY 02/09/24 09/21/24 Unknown History release quetiapine 25 mg tablet (Seroquel) 25 mg PO DAILY 02/09/24 09/21/24 Unknown History sennosides 8.6 mg tablet (Natural 8.6 mg PO DAILY 02/09/24 09/21/24 Unknown History Senna Laxative) trazodone 100 mg tablet 100 mg PO BEDTIME PRN Insomnia 02/09/24 09/21/24 Unknown History Assessment and Plan Assessment Anesthesia Assessment: Chart Reviewed Final Anesthetic Review Family History of Problems with Anesthesia: No History of Problems with Anesthesia: No Documented by User: Carla Fay MD 10/04/24 13:42 [facility] Past Medical History Medical History Insomnia Back pain Morbid obesity Incisional hernia History of substance abuse GERD (gastroesophageal reflux disease) Obesity Depression Low back pain Hypertension Hypertension Surgical History Surgical History History of incisional hernia repair (04/04/24) Hx of umbilical hernia repair (~2022) History of hernia repair Social History Social History Are you a primary health care liaison to a significant other at home: No Do you presently have visiting nurse or other home services: No Alcohol intake: never Patient Tobacco Use Status: Former Tobacco user Tobacco use type: Cigarette Use of substances other than those prescribed or required for medical reasons: Yes Substance Use Type: Marijuana Are you DNR?: No Advance Directives: No Advance Directives Information Provided: Yes Poor oral hygiene: No Meds Allergies Allergy/AdvReac Type Severity Reaction Status Date / Time No Known Allergies Allergy Verified 09/21/24 12:09 Home Medications ?Medication ?Instructions ?Recorded ?Confirmed ?Last Taken ?Type celecoxib 200 mg capsule (Celebrex) 200 mg PO BID 02/09/24 09/21/24 Unknown History cyclobenzaprine 10 mg tablet 10 mg PO BEDTIME 02/09/24 09/21/24 Unknown History lisinopril 20 1 tab PO DAILY 02/09/24 10/04/24 10/04/24 History mg-hydrochlorothiazide 25 mg tablet omeprazole 20 mg capsule,delayed 20 mg PO DAILY 02/09/24 09/21/24 Unknown History release quetiapine 25 mg tablet (Seroquel) 25 mg PO DAILY 02/09/24 09/21/24 Unknown History sennosides 8.6 mg tablet (Natural 8.6 mg PO DAILY 02/09/24 09/21/24 Unknown History Senna Laxative) trazodone 100 mg tablet 100 mg PO BEDTIME PRN Insomnia 02/09/24 09/21/24 Unknown History Exam Airway Mallampati Class: III TM Dist: >3cm Neck ROM: Full Partial: Upper and Lower Loose/Missing/Broken Teeth: Yes, Upper and Lower Heart: RRR Lungs: CTA Assessment and Plan Assessment Anesthesia Assessment: Anesthesia Plan Discussed Final Anesthetic Review NPO: Yes ASA Class: III Final Preanesthetic Review: Meds/Allgs Chart Reviewed, Consent Obtained/Reviewed and Anes Risks/Benef Reviewed Patient Risk: Intermediate Procedure Risk: Intermediate Anesthetic Plan Anesthetic Plan: MAC: Disposition: Standard PACU
[2024-10-04 11:52] VITALS: BMI 48.1
[2024-10-04 12:06] VITALS: BP 137/75; PULSE 72; RESP 16; TEMP 36.7; O2SAT 98
[2024-10-04] MEDS: Lactated Ringers 1,000 ML 100 ML IVCONT (12:20)
--- NOTE | 2024-10-04 13:44 | MHC.SHP ---
Pre-Procedural Eval Section A - 24 Hr Update-Section A only Date of Service: 10/04/24 The patient is an INPATIENT: No The patient has been examined within 24 hours of the surgical procedure. The History & Physical has been completed within 30 days and I have reviewed it.: Yes Section B - Complete if H&P > 30 days Chief Complaint: Morbid (severe) obesity due to excess calories Details of Present Illness: GERD Relevant Family History (Specify if Yes): No Relevant Social History: None Present Medications: None Medical History: No relevant PMH History of Previous Operations: No relevant previous surgery Allergies: Allergies Allergy/AdvReac Type Severity Reaction Status Date / Time No Known Allergies Allergy Verified 09/21/24 12:09 Review of Systems Sugical H&P ROS: Negative: Constitution, Cardiovascular, Respiratory, Neurological, Psychiatric, Hem-Onc, Allergic/Immunologic, Gastrointestinal, Genitourinary, Musculoskeletal, Integumentary, Endocrine and Eyes/Ears/Nose/Throat Exam Surgical H&P Exam: Normal: HEENT, Normal: Heart, Normal: Lungs, Normal: Extremities, Normal: Abdomen, Normal: Skin and Normal: Neurological Plan Diagnosis/Plan: Unchanged (EGD to assess etiology of GERD. Risks of bleeding and perforation were discussed with the patient and he is in agreement with the plan.) I have reviewed the history and physical and performed a pertinent physical examination on my patient. No changes have occurred unless specified. Time Spent With Patient Time: Total time managing care of this patient today ____ minutes.
--- NOTE | 2024-10-04 13:44 | PM.OP ---
Brief Operative Note Date of Service: 10/04/24 Pre-op diagnosis: GERD Procedure: PROCEDURE DATE: 10/04/2024 PREOPERATIVE DIAGNOSIS: GERD POSTOPERATIVE DIAGNOSIS: ?Same as above. Normal endoscopy PROCEDURE: [id number] with biopsies Surgeon: Renea Gill M.D.. Ph.D. Concession Manager: None ? Anesthesia: IV sedation Estimated blood loss: ?Minimal FINDINGS AND PROCEDURE: ? OPERATIVE INDICATIONS: ?The patient is a 44 year old male known to me who is interested in bariatric surgery. The patient has GERD. Based on this information I recommended an upper endoscopy to evaluate the patient's symptoms. Risks and complications of the surgery were discussed with the patient in advance particularly the possibility of perforation or bleeding that may require surgical intervention. The patient understood the risks and was in agreement with the plan. ? PROCEDURE: After informed consent was obtained by the patient, the patient was ?transferred to the Operating Room and was placed in the supine position.? After successful induction of IV sedation, a mouth block was inserted and the patient was placed in the left lateral decubitus position. An upper endoscopy was performed next, the oropharynx and esophagus appeared within the normal limits. There was no hiatal hernia. The z-line was smooth. Two biopsies were obtained from the distal esophagus 2-3 cm proximal to the GE junction and two additional biopsies from the GE junction. The stomach was entered and it appeared to be of normal size. There was no gastritis. There was no stricture or ulcer. A biopsy was obtained from the gastric fundus and the antrum. No significant bleeding was noted from any of the biopsy sites. Retroflexion of the scope confirmed a normal GE junction. The scope was then advanced into the duodenum which appeared to be normal as well. At that point the duodenum ?and the stomach were decompressed and the scope was withdrawn from the patient's mouth. The patient extubated and was transferred in stable condition to the Recovery Room for further care. I was present and performed all steps of the procedure. There were no residents to assist with this case. Pasha Gill M.D., Ph.D. Surgeon: August Gill MD Anesthesia: MAC Was an Concession Manager used for this Procedure?: No Estimated blood loss (mL): 0 IV fluids (mL): 400 Urine output (mL): 0 (No Mendiola to record output) Pathology: other (1) antrum x1, 2) fundus x1, 3) GE junction x2, 4) distal esophagus x2) Condition: stable Disposition: PACU
[2024-10-04 14:09] VITALS: BP 122/69; PULSE 74; RESP 18; TEMP 37.1; O2SAT 100
[2024-10-04 14:15] VITALS: BP 133/74; PULSE 79; RESP 18; O2SAT 100
[2024-10-04 14:24] VITALS: BP 141/75; PULSE 80; RESP 18; TEMP 36.7; O2SAT 100
== END 2024-10-04 14:39 | disposition home or self-care (01) ==
PROVIDERS: PCP Physician Assistant Medical; Visit Provider Surgery
PROC: 0DJ08ZZ Inspection of Upper Intestinal Tract, Via Natural or Artificial Opening Endoscopic (ICD-10-PCS; CPT 43235; principal; 2024-10-04 13:40)
DX: K21.9 Gastro-esophageal reflux disease without esophagitis (principal); E66.01 Morbid (severe) obesity due to excess calories; Z68.43 Body mass index [BMI] 50.0-59.9, adult; I10 Essential (primary) hypertension; M54.50 Low back pain, unspecified; G47.00 Insomnia, unspecified; F19.11 Other psychoactive substance abuse, in remission; Z79.899 Other long term (current) drug therapy; Z98.890 Other specified postprocedural states; Z87.891 Personal history of nicotine dependence
CPT/HCPCS: 43239; 88305; 88313; 88342; J2003; J2250; J2704

== ENCOUNTER → 2024-10-04 10:46 | Outpatient (BNV) | payer OTHER, SELFPAY | PROVIDERS: PCP Physician Assistant Medical; Visit Provider Surgery | DX: K21.9 Gastro-esophageal reflux disease without esophagitis (principal) | CPT/HCPCS: 43239 ==

== ENCOUNTER 2024-10-11 11:43 | Outpatient (REF) | payer OTHER, SELFPAY ==
--- NOTE | ~2024-10-11 | XR_ITS ---
EXAMINATION: XR CHEST CLINICAL INFORMATION: E66.01 - Morbid (severe) obesity due to excess calories COMPARISON: None available. TECHNIQUE: 2 views of the chest were obtained. FINDINGS: No consolidation pleural effusion or pneumothorax. No hyperinflation. Cardiomediastinal silhouette size is normal. Mild multilevel thoracic spondylosis. Patient's large body habitus/obesity. XR/XR chest 2V IMPRESSION: No acute airspace disease. Mild spondylosis, thoracic spine. Electronically signed by: Efrain Wade MD 10/11/2024 12:07 PM EDT
[2024-10-11 12:26] LABS: MANUAL DIFF FLAG NO
--- NOTE | 2024-10-11 12:28 | ECG_ITS ---
Test Reason : E66.01 Blood Pressure : */* mmHG Vent. Rate : 81 BPM Atrial Rate : 81 BPM P-R Int : 160 ms QRS Dur : 78 ms QT Int : 390 ms P-R-T Axes : 58 37 31 degrees QTcB Int : 453 ms Normal sinus rhythm Normal ECG No previous ECGs available Referred By: August Gill Electronically Signed By: KAYLIN LANDRY
[2024-10-11 12:35] LABS: Hematocrit 42.1 % (42.0-52.0); Hemoglobin 14.0 g/dl (14.0-18.0); Imm Gran Abs Auto 0.01 X10*3/uL (0.00-0.03); Imm Gran Pct Auto 0.2 % (0.0-0.4); Lymphocytes Absolute Auto 2.3 X10*3/uL (1.2-4.9); Mean Corpuscular HGB Conc 33.3 g/dl (31.0-36.0); Mean Corpuscular Hemoglobin 29.0 pg (27.0-33.0); Mean Corpuscular Volume 87.2 fL (80.0-98.0); NRBC Abs Auto 0.000 X10*3/uL (0.0-0.012); NRBC Pct Auto 0.0 /100WBC (0.0-0.2); Platelet Count 174 X10*3/uL (160-400); Red Blood Count 4.83 X10*6/uL (4.60-5.80); White Blood Count 6.2 X10*3/uL (4.8-10.8)
[2024-10-11 12:48] LABS: Hemoglobin A1C 136.1992 umol/L; Total Hemoglobin (HGBA1C) 3686.4370 umol/L
[2024-10-11 13:19] LABS: Alanine Aminotransferase 121 U/L (0-40); Albumin Level 4.6 g/dL (3.5-5.0); Alkaline Phosphatase 99 U/L (39-117); Anion Gap 13 (12-20); Aspartate Amino Transferase 107 U/L (5-37); Blood Urea Nitrogen 18 mg/dL (9-16); Calcium 9.5 mg/dL (8.4-10.2); Carbon Dioxide 23 mmol/L (22-29); Chloride 110 mmol/L (96-108); Cholesterol 155 mg/dL (<200); Estimated Glomerular Filt Rate > 60; HDL Cholesterol 35 mg/dL (>40); Iron 104 mcg/dL (45-160); Percent Iron Saturation 39 % (15-50); Potassium 4.1 mmol/L (3.3-5.1); Sodium 142 mmol/L (135-145); Total Iron Binding Capacity 270 mcg/dL (228-428); Total Protein 7.6 g/dL (6.5-8.0); Triglycerides 106 mg/dL (<150); Unsaturated Iron Binding 166 ug/dL
[2024-10-11 13:28] LABS: Ferritin 358 ng/mL (20-250)
[2024-10-11 13:38] LABS: Folate 9.1 ng/mL (> or = 4.0); Vitamin B12 546 pg/mL (200-900)
== END 2024-10-11 11:44 | disposition home or self-care (01) ==
LOC: HO.XRAY 11:43
PROVIDERS: Visit Provider Surgery
DX: I10 Essential (primary) hypertension (principal); K21.9 Gastro-esophageal reflux disease without esophagitis; E66.01 Morbid (severe) obesity due to excess calories
CPT/HCPCS: 36415; 71046; 80053; 80061; 82306; 82607; 82728; 82746; 83036; 83525; 83540; 84425; 84443; 84590; 84630; 85025; 86140; 93005

== ENCOUNTER → 2024-10-11 11:49 | Outpatient (BNV) | payer OTHER, SELFPAY | PROVIDERS: Visit Provider Radiology Diagnostic Radiology | DX: E66.01 Morbid (severe) obesity due to excess calories (principal); Z68.43 Body mass index [BMI] 50.0-59.9, adult | CPT/HCPCS: 71046 ==

== ENCOUNTER → 2024-10-11 12:28 | Outpatient (BNV) | payer OTHER, SELFPAY | PROVIDERS: Visit Provider Internal Medicine | DX: E66.01 Morbid (severe) obesity due to excess calories (principal) | CPT/HCPCS: 93010 ==

== ENCOUNTER 2024-10-17 11:11 | Outpatient (AMB) | payer OTHER, SELFPAY ==
--- NOTE | 2024-10-17 11:05 | MHC.WMTHER ---
Intake Intake Visit Reasons: VIDEO Intake Allergies No Known Allergies Allergy (Verified 12/28/24 10:56) [facility] Medical History (Updated 12/28/24 @ 10:56 by Asya Schafer RN) Sleep apnea Insomnia Back pain Morbid obesity Incisional hernia History of substance abuse GERD (gastroesophageal reflux disease) Obesity Depression Low back pain Hypertension Hypertension Surgical History History of incisional hernia repair (04/04/24) Hx of umbilical hernia repair (~2022) History of hernia repair Social History Are you a primary animal care attendant to a significant other at home: No Do you presently have visiting nurse or other home services: No Alcohol intake: never Patient Tobacco Use Status: Former Tobacco user Tobacco use type: Cigarette Use of substances other than those prescribed or required for medical reasons: Yes Substance Use Type: Marijuana Substance Use Type Other:: smoked--LD ? 12/28 am or 12/27 Are you DNR?: No Advance Directives: No Advance Directives Information Provided: Yes Behavioral Health Assessment Weight Management Therapy Therapy Notes Details Patient is a 44-year-old male presenting for an initial behavioral health assessment as part of the surgical weight loss program. He reports being encouraged to pursue this process by his , who previously underwent weight loss surgery with positive results. The patient states he experienced a significant weight gain of approximately 150 pounds over the past year. He is now experiencing sciatic nerve pain, which has been a major factor motivating him to consider surgical intervention. Presenting Concerns Referral Source WMP-Provider. Reason for referral Completion of behavioral health assessment as part of process for weight-loss surgery. Precipitating Event Obesity. Living Situation Current Living Situation Rent At risk of losing current housing? No Satisfied with current living situation? Yes Comments Pt lives with his , step-daughter, 2 dogs and 1 lizard. Social History Family history and relationship PT is 2 years ago, they have been together fir 3 years. They don't have kids, have a 20 year old daughter. He had 4 children from previous relationship, (oldest , 3 boys alive are 31, 20 and 18). Mother is , father alive. He has 2 brothers and 1 sister. PT reports there is always a lot of conflict on his family so he rather stay away. He is close to his children. Parental/Familial behavioral modification assistant obligations None. 18 y/o is in residential. Developmental history and status None diagnosed but Pt recall a hard time learning and was very hyper. Social support , children. Community support PCP, Therapist Jehovah'S Witness/Spirituality None but grew up Jain. Cultural/Ethnic information [place] Heritage. Born in [place], [place]. Legal Involvement and History Current or historical involvement with the legal system? None. Haven't had any over 10 years ago. Education Highest grade completed GED. Preferred learning style Auditory and Visual Currently enrolled in educational program? No Interested in further educational program? No Educational Interests/Skills Used to work in construction. Employment Employment Status Unemployed (4 years ago due to health issues. ) Wants help to find employment? No Meaningful activities Cars, community activities, outdoors, social activities. Watch sports, listen to music, play video games. Financial Situation Describe current financial situation Occasional struggle and Often struggles with finance Financial assistance? Food [place] and [employer] (Waiting for Disability determination. ) Service Service? No Mental Health and Addiction Treatment Current/Past substance abuse? Yes Comments Alcohol: None 5 years ago. Used to drink since age 15. Cigarettes/Tobacco: quit 1 year ago. Cannabis/Edibles: Smoke, 1x day. . Cocaine until age 37. Percocets at age 38 Heroin started at age 38 - quit 5 years ago. PT reports been clean 5 years ago. He was on Methadone for 4 years, been out of that tx 1 year ago. Current/Past addictive behavior concerns? No Psychiatric history He goes to [facility] where he receives outpatient therapy and medication management. Been there for about 5 year. He has been treated for Depression, anxiety, trauma. He sees therapist 2 times at month and sees the prescriber every month. Current psych meds prescribed (these meds are not listed on his file, PT got the bottles and read the labels to the provider, so we will need to clarify with the clinic the accurate medication list and diagnosis) - Quetiapine 25mg - Trazodone 150mg - Abilify 2mg . PT has been inpatient 2 times 8 years ago due to MH ([place]) and substance use. Has done detox and rehab 3 times., he completed the 3rd time and he has been clean since. PT denies any safety concerns in the last year. PT reports he is in a good place right now with his services and the social support he has. Questionnaires PHQ-9 Over the last 2 weeks, how often have you been bothered by any of the following problems? 1. Little interest or pleasure in doing things: nearly every day 2. Feeling down, depressed, or hopeless: nearly every day 3. Trouble falling or staying asleep, or sleeping too much: nearly every day 4. Feeling tired or having little energy: nearly every day 5. Poor appetite or overeating: more than half the days 6. Feeling bad about yourself - or that you are a failure or have let yourself or your family down: nearly every day 7. Trouble concentrating on things, such as reading the newspaper or watching television: nearly every day 8. Moving or speaking so slowly that other people could have noticed. Or the opposite - being so fidgety or restless that you have been moving around a lot more than usual: nearly every day 9. Thoughts that you would be better off or of hurting yourself in some way: several days Total score: 24 Depression Screening Interpretation: Positive (From new PT pack.) Depression Screening Follow-up: Existing condition and In treatment Depression Screening Done: Yes Source: Developed by Drs. Navdeep Smith, Eva Almeida, Glenroy Parker and colleagues, with an educational shirlene from [employer]. Binge Eating Scale Group 1 A. I don't feel self-conscious about my wt. or body size when I'm with others. B. I feel concerned about how I look to others, but it normally does not make me fell disappointed with myself C. I do get self-conscious about my appearance and wt. which makes me feel disappointed in myself. D. I feel very self-conscious about my wt. and frequently I feel intense shame and disgust for myself. I try to avoid social contacts because of my self-consciousness. Response Group 1: D Group 2 A. I don't have any difficulty eating slowly in the proper manner. B. Although I seem to gobble down foods, I don't end up feeling stuffed because of eating to much. C. At times, I tend to eat quickly and then, I feel uncomfortably full afterwards. D. I have the habit of bolting down my food, without really chewing it. When this happens I usually feel uncomfortably stuffed because I've eaten to much. Response Group 2: D Group 3 A. I feel capable to control my eating urges when I want to. B. I feel like I have failed to control my eating more than the average person. C. I feel utterly helpless when it comes to feeling in control of my eating urges. D. Because I feel so helpless about controlling my eating I have become very desperate about trying to get control. Response Group 3: D Group 4 A. I don't have the habit of eating when I'm bored. B. I sometimes eat when I'm bored, but often I'm able to get busy and get my mind off food. C. I have a regular habit of eating when I'm bored, but occasionally, I can use some other activity to get my mind off eating. D. I have a strong habit of eating when I'm bored. Nothing seems to help me breath the habit. Response Group 4: D Group 5 A. I'm usually physically hungry when I eat something. B. Occasionally, I eat something on impulse even though I really am not hungry. C. I have the regular habit of eating foods, that I might not really enjoy, to satisfy a hungry feeling even though physically, I don't need the food. D. Although I'm not physically hungry, I get a hungry feeling in my mouth that only seems to be satisfied when I eat a food, like sandwich, that fills my mouth. Sometimes, when I eat the food to satisfy my mouth hunger, I then spit the food out so I won't gain weight. Response Group 5: A Group 6 A. I don't feel any guilt or self-hate after I overeat. B. After I overeat, occasionally I feel guilt or self-hate. C. Almost all the time I experience strong guilt or self-hate after I overeat. Response Group 6: B Group 7 A. I don't lose total control of my eating when dieting even after periods when I overeat. B. Sometimes when I eat a forbidden food on a diet, I feel like I blew it and eat even more. C. Frequently, I have the habit of saying to myself, I've blown it now, why not go all the way, when I overeat on a diet. When that happens I eat more. D. I have a regular habit of starting a strict diets for myself but I break the diets by going on an eating binge. My life seems to be either a feast or famine. Response Group 7: B Group 8 A. I rarely eat so much food that I feel uncomfortably stuffed afterwards. B. Usually about once a month, I each such a quantity of food, I end up feeling very stuffed. C. I have regular periods during the month when I eat large amounts of food, either at mealtime or at snacks. D. I eat so much food that I regularly feel quite uncomfortable after eating and sometimes a bit nauseous. Response Group 8: C Group 9 A. My level of calorie intake does not go up very high or go down very low on a regular basis. B. Sometimes after I overeat, I will try to reduce my caloric intake to almost nothing to compensate for the excess calories I've eaten. C. I have a regular habit of overeating during the night. It seems that my routine is not to be hungry in the morning but overeat in the evening. D. In my adult years, I have had week-long periods where I practically starve myself. This follows periods when I overeat. It seems I live a life of either feast or famine. Response Group 9: C Group 10 A. I usually am able to stop eating when I want to. I know when enough is enough. B. Every so often, I experience a compulsion to eat which I can't seem to control. C. Frequently, I experience strong urges to eat which I seem unable to control, but at other times I can control my eating urges. D. I feel incapable of controlling urges to eat. I have a fear of not being able to stop eating voluntarily. Response Group 10: C Group 11 A. I don't have any problem stopping eating when I feel full. B. I usually can stop eating when I feel full but occasionally overeat leaving me feeling uncomfortably stuffed. C. I have a problem stopping eating once I start and usually I feel uncomfortably stuffed after I eat a meal. D. Because I have a problem not being able to stop eating when I want, I sometimes have to induce vomiting to relieve my stuffed feeling. Response Group 11: B Group 12 A. I seem to eat just as much when I'm with others, Family social gatherings as when I'm by myself. B. Sometimes, when I'm with other persons, I don't eat as much as I want to eat because I'm self-conscious about my eating. C. Frequently, I eat only a small amount of food when others are present, because I'm very embarrassed about my eating. D. I feel so ashamed about overeating that I pick times to overeat when I know no one will see me. I feel like a closet eater. Response Group 12: D Group 13 A. I eat three meals a day with only an occasional between meal snack. B. I eat 3 meals a day, but I also normally snack between meals. C. When I am snacking heavily, I get in the habit of skipping regular meals. D. There are regular periods when I seem to be continually eating, with no planned meals. Response Group 13: D Group 14 A. I don't think much about trying to control unwanted eating urges. B. At least some of the time, I feel my thoughts are pre-occupied with trying to control my eating urges. C. I feel that frequently I spend much time thinking about how much I ate or about trying not to eat anymore. D. It seems to me that most of my waking hours are pre-occupied by thoughts about eating or not eating. I feel like I'm constantly struggling not to eat. Response Group 14: C Group 15 A. I don't think about food a great deal. B. I have strong craving for food but they last only for brief periods of time. C. I have days when I can't seem to think about anything else but food. D. Most of my days seem to be pre-occupied with thoughts about food. I feel like I live to eat. Response Group 15: D Group 16 A. I usually know whether or not I'm physically hungry. I take the right portion of food to satisfy me. B. Occasionally, I feel uncertain about knowing whether or not I'm physically hungry. A these times it's hard to know how much food I should take to satisfy me. C. Even though I might know how many calories I should eat, I don't have any idea what is a normal amount of food for me. Response Group 16: C Binge Eating Score: 34 Score less than 17 Minimal Risk Score between 18-26 Moderate Risk Score between 27-46 High Risk Assessment & Plan Assessment & Plan (1) History of substance abuse: Comment: prior methadone treatment Code(s): F19.11 - Other psychoactive substance abuse, in remission (2) Trauma and stressor-related disorder: Code(s): F43.9 - Reaction to severe stress, unspecified (3) Pre-bariatric surgery psychological evaluation: Code(s): Z71.89 - Other specified counseling Plan The patient was not cleared today as the assessment was not completed. The patient will return in 2-4 weeks to continue the evaluation. PT has been asked to get a letter from provider stating his diagnosis and medication list. Next appointment: 11/08/2024 at 2pm. Telehealth Telehealth Telehealth Platform: [employer] Location of provider rendering services: other (Home office. [place], [place]) Location of patient: address on file Patient Identification confirmed using: Name, : Yes Telehealth method: video Patient verbally consented to treatment: Yes Patient verbally consented to billing insurance company: Yes Patient informed of any privacy concerns related to visit: Yes Minutes spent on Phone/Video with Pt.: 55 Coding Level of Care Code New Pt Tele Psy Diag Eval (85950) Patient Type New Diagnoses History of substance abuse F19.11 Trauma and stressor-related disorder F43.9 Pre-bariatric surgery psychological evaluation Z71.89 Time Spent (min) 55
== END 2024-10-17 12:07 | disposition home or self-care (01) ==
LOC: HO.HBST 11:11
PROVIDERS: Visit Provider Counselor Mental Health
DX: F19.11 Other psychoactive substance abuse, in remission (principal); F43.9 Reaction to severe stress, unspecified; Z71.89 Other specified counseling
CPT/HCPCS: 90791

== ENCOUNTER 2024-10-20 12:45 | Outpatient (AMB) | payer OTHER, SELFPAY ==
--- NOTE | 2024-10-20 12:54 | A.OFFVIS_ITS ---
Vital Signs 3 10/20/24 13:09 Height 5 ft 11 in Weight 342 lb BMI 47.7 BP 170/85 H Blood Pressure Location Lt brachial Position Sitting Pulse 74 Intake Visit Reasons: possible hernia Intake Note: Patient is seen in office for possible recurrent hernia. Pt c/o: left abdomen hernia, onset one month, feels a lump, denies n/v/d/c, hard to the touch L.OV:05/12/24 (post abdominal hernia repair) Associate Trainer Required: No Accompanied by: Family/Other Allergies No Known Allergies Allergy (Verified 10/20/24 12:55) Medication List - Last Reconciled 10/20/24 by Edwardo Vaughan MD celecoxib (Celebrex) 200 mg PO BID cholecalciferol (vitamin D3) 125 mcg PO DAILY cyclobenzaprine 10 mg PO BEDTIME lisinopril-hydrochlorothiazide 20-25 mg 1 tab PO DAILY omeprazole 20 mg PO DAILY quetiapine (Seroquel) 25 mg PO DAILY sennosides (Natural Senna Laxative) 8.6 mg PO DAILY trazodone 100 mg PO BEDTIME PRN HPI Comments Details: 44-year-old male patient returning with a new recurrent hernia this time located to the left of midline in the upper abdomen. This began approximately 1 month ago and has persisted and gradually increased in size. He reports some discomfort associated with this but denies nausea, vomiting, fever or chills. He denies any changes in his bowel habits. He previously underwent a repair on 11/10/2022 and then subsequent recurrent repair on 04/04/2024. [facility] Medical History Insomnia Back pain Morbid obesity Incisional hernia History of substance abuse GERD (gastroesophageal reflux disease) Obesity Depression Low back pain Hypertension Hypertension Surgical History History of incisional hernia repair (04/04/24) Hx of umbilical hernia repair (~2022) History of hernia repair Social History Are you a primary career development coordinator to a significant other at home: No Do you presently have visiting nurse or other home services: No Alcohol intake: never Patient Tobacco Use Status: Former Tobacco user Tobacco use type: Cigarette Substance Use Type: Marijuana Review of Systems Const All systems reviewed & are unremarkable except as noted in HPI and below Physical Exam Vital Signs: Last Vital Signs Pulse 74 10/20/24 13:09 BP 170/85 H 10/20/24 13:09 BMI result Body Mass Index 47.7 Const General: comfortable Nutritional Appearance: well nourished Orientation/consciousness: patient oriented x3 Resp Effort & Inspection: normal respiratory effort GI Other: Upper midline incision is clean and intact. No redness or discharge is identified. New palpable hernia noted to the left of midline in the mid incision as noted below. This increases in size with Valsalva maneuvers but then reduces with light pressure. Also noted is a small umbilical hernia which is also reducible. Hernia measures approximately 5 cm in diameter. Inspection: Yes normal to inspection Palpation (GI): Soft to palpation, nontender, no guarding and not rigid Abdomen image: 2 1. Previous midline incision 2. 5 cm recurrent incisional hernia to left of midline reducible Skin General skin exam: no rashes or lesions noted Neuro General: patient oriented x3 Extrem General: Yes no clubbing, cyanosis or edema Assessment & Plan Assessment & Plan (1) Incisional hernia: Code(s): K43.2 - Incisional hernia without obstruction or gangrene Category: Medical Qualifiers: Obstruction and gangrene presence: without obstruction or gangrene Q ualified Code(s): K43.2 - Incisional hernia without obstruction or gangrene Plan 44-year-old male patient again returning with a recurrent incisional hernia. On examination he has a 5 cm reducible incisional hernia to the left of midline. I recommended obtaining a CT abdomen and pelvis to evaluate for additional hernias in the midline prior to repair of this recurrent hernia. He expressed understanding and agrees with the plan. Orders: Orders 2 CT abdomen pelvis wo IV con Today K43.2 - Incisional hernia without obstruction or gangrene Coding Level of Care Code Est Pt Level 3 (72641) Diagnoses Incisional hernia, without obstruction or gangrene K43.2 Obstruction and gangrene presence: without obstruction or gangrene
[2024-10-20 13:09] VITALS: BP 170/85; PULSE 74; BMI 47.7
== END 2024-10-20 13:41 | disposition home or self-care (01) ==
LOC: HO.HGS 12:46
PROVIDERS: PCP Physician Assistant Medical; Visit Provider Surgery
DX: K43.2 Incisional hernia without obstruction or gangrene (principal)
CPT/HCPCS: 99213

== ENCOUNTER → 2024-10-20 12:45 | Outpatient (BNVA) | payer OTHER, SELFPAY | PROVIDERS: PCP Physician Assistant Medical; Visit Provider Surgery | DX: K43.2 Incisional hernia without obstruction or gangrene (principal) | CPT/HCPCS: 99212 ==

== ENCOUNTER 2024-11-02 12:45 | Outpatient (REF) | payer OTHER, SELFPAY ==
--- NOTE | ~2024-11-02 | US_ITS ---
EXAMINATION: US ABDOMEN COMPLETE WITH LIVER ELASTOGRAPHY HISTORY: E66.01 - Morbid (severe) obesity due to excess calories TECHNIQUE: Real-time grayscale ultrasound imaging of the abdomen was performed and images were reviewed. COMPARISON: Correlation is made with a CT of the abdomen with contrast dated 09/21/2022. FINDINGS: Liver: The right lobe of the liver measures 15.2 cm in size. The left lobe of the liver measures 13.1 cm in size. The liver demonstrates increased echotexture, consistent with steatosis. No focal mass or intrahepatic biliary ductal dilatation is identified. There is normal hepatopedal flow in the portal vein. Ultrasound elastography of the liver was performed with 10 separate measurements of the liver parenchyma with the patient in the supine position. Measurements were obtained approximately 2 cm below Bina's capsule and perpendicular to the capsule. The median shear wave velocity is 1.64 m/s. The interquartile range/median (IQR/median) is 0.10. Gallbladder and biliary tree: The gallbladder is unremarkable, without evidence of calculi, wall thickening, or pericholecystic fluid. There is no sonographic Haider sign. The common bile duct is normal in caliber measuring 6 mm. Kidneys: The right kidney measures 10.5 cm in length. The left kidney measures 11.4 cm in length. The kidneys are unremarkable, without evidence of masses, hydronephrosis, or calculi. Pancreas: The pancreas is obscured by bowel gas. Spleen: The spleen is enlarged, measuring 15.1 cm in length. Abdominal aorta and inferior vena cava: The visualized portions of the abdominal aorta and inferior vena cava are normal in caliber. There is no free fluid in the abdomen. US/US abdomen comp w elastography IMPRESSION: Hepatosplenomegaly and hepatic steatosis. The median shear wave velocity in the liver is 1.64 m/s, corresponding to a median liver stiffness of 8.32 kPa. The IQR/median value is 0.10. This is indicative of a quality data set. Findings are indicative of a low elastography value which rules out advanced chronic liver disease in asymptomatic patients. REFERENCE: Society of Radiologists in Ultrasound Liver Stiffness Thresholds (2020): LIVER STIFFNESS THRESHOLDS: *Shear wave velocity less than 1.3 m/s (Liver Stiffness equal or less than 5 kPa): High probability of being normal. *Shear wave velocity less than 1.7 m/s (Liver Stiffness less than 9 kPa): In the absence of other known clinical signs, rules out compensated advanced chronic liver disease. *Shear wave velocity between 1.7-2.1 m/s (Liver Stiffness 9-13 kPa): Suggestive of compensated advanced chronic liver disease but need further test for confirmation. *Shear wave velocity between 2.1-2.4 m/s (Liver Stiffness 13-17 kPa): Rules in compensated advanced chronic liver disease. *Shear wave velocity greater than 2.4 m/s (Liver Stiffness over 17 kPa): Suggestive of clinically significant portal hypertension. QUALITY OF DATA SET: *IQR/Median value equal or less than 0.15 implies a quality data set. *IQR/Median value over 0.15 implies a poor quality data set. SIGNIFICANT CHANGE FROM PRIOR EXAM: Significant change if liver stiffness measurement is 10% or greater from prior exam. OTHER CONSIDERATIONS: The stage of liver fibrosis may be overestimated in the setting of acute hepatitis, liver inflammation, elevated liver function tests, hepatic vascular congestion, obstructive cholestasis, non-fasting state, and infiltrative diseases such as amyloidosis and lymphoma. In some patients with NAFLD, the liver stiffness thresholds for compensated advanced chronic liver disease may be lower. In causes other than viral hepatitis and NAFLD, liver stiffness thresholds are not well established. Electronically signed by: Navdeep Montaño MD 11/02/2024 01:54 PM EDT
== END 2024-11-02 12:46 | disposition home or self-care (01) ==
LOC: HO.US 12:45
PROVIDERS: Visit Provider Surgery
DX: E66.01 Morbid (severe) obesity due to excess calories (principal); K21.9 Gastro-esophageal reflux disease without esophagitis; I10 Essential (primary) hypertension
CPT/HCPCS: 76700; 76981

== ENCOUNTER → 2024-11-02 12:47 | Outpatient (BNV) | payer OTHER, SELFPAY | PROVIDERS: Visit Provider Radiology Diagnostic Radiology | DX: K76.0 Fatty (change of) liver, not elsewhere classified (principal); R16.2 Hepatomegaly with splenomegaly, not elsewhere classified | CPT/HCPCS: 76700 ==

== ENCOUNTER 2024-11-08 14:13 | Outpatient (AMB) | payer OTHER, SELFPAY ==
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
== END 2024-11-08 15:30 | disposition home or self-care (01) ==
LOC: HO.HBST 14:13
PROVIDERS: Visit Provider Counselor Mental Health
DX: F19.11 Other psychoactive substance abuse, in remission (principal); F43.9 Reaction to severe stress, unspecified; Z71.89 Other specified counseling
CPT/HCPCS: 90837

== ENCOUNTER 2024-11-22 15:45 | Outpatient (REF) | payer OTHER, SELFPAY ==
--- NOTE | ~2024-11-22 | CT_ITS ---
EXAMINATION: CT ABDOMEN AND PELVIS WITHOUT CONTRAST CLINICAL INFORMATION: K43.2 - Incisional hernia without obstruction or gangrene COMPARISON: September 21, 2022 TECHNIQUE: Multidetector volumetric imaging was performed from the superior aspect of the liver through the pubic symphysis. Sagittal and coronal reformatted images were obtained on the technologist's workstation. This CT examination was performed using dose optimization techniques as appropriate, variously including the following: *Automated exposure control *Adjustment of mA and/or kV according to patient size (this includes techniques or standardized protocols for targeted exams where dose is matched to indication/reason for exam; i.e. extremities or head) *Use of iterative reconstruction technique DLP: 1119 mGY*cm FINDINGS: LUNG BASES: The visualized lung bases are unremarkable. LIVER, GALLBLADDER, AND BILIARY TREE: Diffuse fatty changes are present in the liver. The gallbladder is unremarkable with no evidence of radiopaque gallstones, gallbladder wall thickening, or obvious pericholecystic inflammatory changes. PANCREAS: Unremarkable. SPLEEN: Unremarkable. ADRENAL GLANDS: Unremarkable. KIDNEYS AND URETERS: The kidneys are normal in size, shape, and attenuation. No hydronephrosis, hydroureter, or calculi seen. No perinephric stranding. BLADDER: Unremarkable. GASTROINTESTINAL TRACT: The small and large bowel are unremarkable. The appendix is unremarkable. ABDOMINAL WALL: There is an umbilical hernia containing adipose tissue. Hernia sac measures 7 cm anteroposterior and 2 cm transversely. There is no fatty streaking. It has increased in size since the prior. There is a second hernia left of midline, just above the umbilicus, extending to a gap in the linea alba 3 cm wide. It contains fatty density, likely greater omentum. Hernia sac measures 3.5 x 5.8 cm (AP by transverse). LYMPH NODES: Right external iliac lymph node measures 14 mm short axis. On the prior, measured 11 mm. Right inguinal lymph node measures 15 mm short axis, but it has a fatty hilum. There are borderline nodes in the left external iliac and inguinal region. VASCULAR: Mild vascular calcifications are present. PELVIC VISCERA: Unremarkable. OSSEOUS STRUCTURES: Severe facet arthropathy is present at L5-S1. Mild degenerative changes with vacuum phenomenon is noted in bilateral SI joints. CT/CT abdomen pelvis wo IV con IMPRESSION: Enlarging umbilical hernia containing normal density adipose tissue. Left supraumbilical hernia likely containing greater omentum without fat stranding. Nonspecific enlarging right external iliac lymph node and borderline right inguinal and a left external iliac and inguinal lymph nodes are uncertain significance and could be reactive in nature. Neoplasm is not ruled out. Fatty liver. Severe facet osteoarthritis is present at L5-S1. Fleischner guidelines were followed. Electronically signed by: Gwyn Bingham MD 11/22/2024 05:43 PM EDT
== END 2024-11-22 15:46 | disposition home or self-care (01) ==
LOC: HO.CT 15:45
PROVIDERS: PCP Physician Assistant Medical; Visit Provider Surgery
DX: K43.2 Incisional hernia without obstruction or gangrene (principal)
CPT/HCPCS: 74176

== ENCOUNTER → 2024-11-22 15:48 | Outpatient (BNV) | payer OTHER, SELFPAY | PROVIDERS: PCP Physician Assistant Medical; Visit Provider Radiology Diagnostic Radiology | DX: K42.9 Umbilical hernia without obstruction or gangrene (principal); K76.0 Fatty (change of) liver, not elsewhere classified; M47.816 Spondylosis without myelopathy or radiculopathy, lumbar region | CPT/HCPCS: 74176 ==

== ENCOUNTER 2024-12-06 11:24 | Outpatient (AMB) | payer OTHER, SELFPAY ==
--- NOTE | 2024-12-06 11:05 | MHC.WMTHER ---
Intake Intake Visit Reasons: VIDEO BH F/U Allergies No Known Allergies Allergy (Verified 10/20/24 12:55) [facility] Medical History (Updated 11/13/24 @ 19:07 by August Gill MD) Insomnia Back pain Morbid obesity Incisional hernia History of substance abuse GERD (gastroesophageal reflux disease) Obesity Depression Low back pain Hypertension Hypertension Surgical History History of incisional hernia repair (04/04/24) Hx of umbilical hernia repair (~2022) History of hernia repair Social History Are you a primary primary care physician to a significant other at home: No Do you presently have visiting nurse or other home services: No Alcohol intake: never Patient Tobacco Use Status: Former Tobacco user Tobacco use type: Cigarette Substance Use Type: Marijuana Behavioral Health Assessment Weight Management Therapy Therapy Notes Details Subjective: PT reports he is doing well and up to date with MH treatment. He has not yet provided the required documentation from behavioral health providers, stating that he has the paperwork at home. He reports not having purchased a scale due to financial constraints; he was encouraged to have weight checks performed in the office for accurate monitoring. Objective: Patient attended the telehealth session as scheduled and was engaged throughout the visit. No acute distress or safety concerns observed during the session. No documentation from behavioral health providers was available for review at this time. Patient was reminded of the importance of submitting required behavioral health clearance documents and was given a deadline for submission. Discussed alternative options for weight monitoring, including utilizing in-office weight checks and reviewed strategies for maintaining compliance with pre-operative requirements. Assessment/Response: Mental status: WNL Risk reported/identified: None. Food/Weight/Diet Expectations of change Pt started the program on 09/21/24 at 258Lbs and the initial goal is to lose 10% of his weight before surgery, which is about 38lbs. Ultimate weight goal: 320lbs before surgery. Pt reports his most recent weight as of last Thursday11/05/24 was 323Lbs. Recent weight as of 12/04/24: 325Lbs Patient would like to be at least 200Lbs and go back to a healthier and active lifestyle. PT is implementing the following: Current meal plan: 2 protein shakes, 2.5 protein bars and one meal per day. (not always doing the bars) Exercise plan: daily walks. Scale: none yet, using regular. Communication w/ provider: Saturdays. Assessment & Plan Assessment & Plan (1) History of substance abuse: Comment: prior methadone treatment Code(s): F19.11 - Other psychoactive substance abuse, in remission (2) Trauma and stressor-related disorder: Code(s): F43.9 - Reaction to severe stress, unspecified (3) Pre-bariatric surgery psychological evaluation: Code(s): Z71.89 - Other specified counseling Plan -No further appointments are scheduled at this time. The patient is required to provide documentation from mental health providers to support surgical clearance. He reports that he has these documents at home and will bring them by 12/19, when he has another appointment in the same building. To date, he has demonstrated compliance with program expectations and remains a good candidate for the program. -A pre-filled Release of Information (RADHA) form will be mailed to the patient for completion and return. Additionally, a request for providers will be processed via fax. -An addendum will be added to the previous assessment note upon receipt of the required clearance documentation. Next appointment:?None scheduled. Telehealth Telehealth Telehealth Platform: [facility] Location of provider rendering services: practice address Location of patient: address on file Patient Identification confirmed using: Name, : Yes Telehealth method: video Patient verbally consented to treatment: Yes Patient verbally consented to billing insurance company: Yes Patient informed of any privacy concerns related to visit: Yes Minutes spent on Phone/Video with Pt.: 30 Coding Level of Care Code Established Pt Tele Psytx 30 mins (88517) Patient Type Established Diagnoses History of substance abuse F19.11 Trauma and stressor-related disorder F43.9 Pre-bariatric surgery psychological evaluation Z71.89 Time Spent (min) 30
== END 2024-12-06 11:41 | disposition home or self-care (01) ==
LOC: HO.HBST 11:24
PROVIDERS: PCP Physician Assistant Medical; Visit Provider Counselor Mental Health
DX: F19.11 Other psychoactive substance abuse, in remission (principal); F43.9 Reaction to severe stress, unspecified; Z71.89 Other specified counseling
CPT/HCPCS: 90832

== ENCOUNTER 2024-12-19 12:41 | Outpatient (AMB) | payer OTHER, SELFPAY ==
--- NOTE | 2024-12-19 12:56 | MHC.OFFVIS ---
Vital Signs 12/19/24 13:01 Height 5 ft 11 in Weight 337 lb 4.916 oz BMI 47.0 Respiration 18 Pulse 76 Intake Visit Reasons: s/p ct 11/22 Intake Note: Patient is seen in office for CT scan results, following for incisional hernia. Pt c/o:denies any changes, here for results CT:11/22/24 Network Administrator Required: No Accompanied by: Family/Other Allergies No Known Allergies Allergy (Verified 12/19/24 13:00) HPI Comments Details: 44-year-old male patient returning with a new recurrent hernia this time located to the left of midline in the upper abdomen. This began approximately 3 month ago and has persisted and gradually increased in size. He reports some discomfort associated with this but denies nausea, vomiting, fever or chills. He denies any changes in his bowel habits. He previously underwent a repair on 11/10/2022 and then subsequent recurrent repair on 04/04/2024. A CT abdomen and pelvis confirmed a new hernia located just above the umbilicus to the left of midline and at the umbilicus consistent with a recurrent incisional hernia. He feels the hernia continues to increase in size and is causing some discomfort. [facility] Medical History Insomnia Back pain Morbid obesity Incisional hernia History of substance abuse GERD (gastroesophageal reflux disease) Obesity Depression Low back pain Hypertension Hypertension Surgical History History of incisional hernia repair (04/04/24) Hx of umbilical hernia repair (~2022) History of hernia repair Social History Are you a primary rn medicare to a significant other at home: No Do you presently have visiting nurse or other home services: No Alcohol intake: never Patient Tobacco Use Status: Former Tobacco user Tobacco use type: Cigarette Substance Use Type: Marijuana Review of Systems Const All systems reviewed & are unremarkable except as noted in HPI and below Physical Exam Vital Signs: Last Vital Signs Pulse 76 12/19/24 13:01 Resp 18 12/19/24 13:01 BMI result Body Mass Index 47.0 Const General: comfortable Nutritional Appearance: well nourished Orientation/consciousness: patient oriented x3 Resp Effort & Inspection: normal respiratory effort GI Other: Upper midline incision is clean and intact. No redness or discharge is identified. New palpable hernia noted to the left of midline in the mid incision as noted below. This increases in size with Valsalva maneuvers but then reduces with light pressure. Also noted is a small umbilical hernia which is also reducible. Hernia measures approximately 5 cm in diameter. Inspection: Yes normal to inspection Palpation (GI): Soft to palpation, nontender, no guarding and not rigid Skin General skin exam: no rashes or lesions noted Neuro General: patient oriented x3 Extrem General: Yes no clubbing, cyanosis or edema Assessment & Plan Assessment & Plan (1) Incisional hernia: Code(s): K43.2 - Incisional hernia without obstruction or gangrene Category: Medical Qualifiers: Obstruction and gangrene presence: without obstruction or gangrene Qualified Code(s): K43.2 - Incisional hernia without obstruction or gangrene Plan 44-year-old male patient returning with a recurrent incisional hernia in the midabdomen. This was confirmed by the CT abdomen and pelvis. I recommended repair of this recurrent incisional hernia with mesh and after discussion of the procedure, risks and alternatives, he consents to the surgery. Coding Level of Care Code Est Pt Level 4 (20544) Diagnoses Incisional hernia, without obstruction or gangrene K43.2 Obstruction and gangrene presence: without obstruction or gangrene
[2024-12-19 13:01] VITALS: PULSE 76; RESP 18; BMI 47.0
== END 2024-12-19 13:11 | disposition home or self-care (01) ==
PROVIDERS: PCP Physician Assistant Medical; Visit Provider Surgery
DX: K43.2 Incisional hernia without obstruction or gangrene (principal)
CPT/HCPCS: 99214

== ENCOUNTER → 2024-12-19 12:41 | Outpatient (BNVA) | payer OTHER, SELFPAY | PROVIDERS: PCP Physician Assistant Medical; Visit Provider Surgery | DX: K43.2 Incisional hernia without obstruction or gangrene (principal) | CPT/HCPCS: 99212 ==

== ENCOUNTER 2024-12-28 10:46 | Day surgery (SDC) | payer OTHER, SELFPAY ==
[2024-12-26 08:29] VITALS: BMI 47.0
--- NOTE | 2024-12-26 14:23 | HO.ANESPROP2 ---
Documented by User: Shereen Lucia NP 12/26/24 14:25 HPI - Anesthesia Eval Consult details Narrative: 44yo M for Hernia Incisional Reducible, WITH MESH s/p hernia repair 03/2024 with GETA 7.5 BMI 47 PMFSH Active Problems Active Problems: All Active Problems Vitamin B1 deficiency (Acute) Vitamin A deficiency (Acute) Vitamin D deficiency (Acute) Insomnia (Acute) Back pain (Acute) Morbid obesity (Acute) Hernia of anterior abdominal wall (Acute) Incisional hernia (Acute) History of substance abuse (Acute) GERD (gastroesophageal reflux disease) (Acute) Obesity (Acute) Low back pain (Acute) Hypertension (Acute) Past Medical History Medical History (Updated 12/28/24 @ 10:56 by Asya Schafer RN) Sleep apnea Insomnia Back pain Morbid obesity Incisional hernia History of substance abuse GERD (gastroesophageal reflux disease) Obesity Depression Low back pain Hypertension Hypertension Family History Family history of problems with anesthesia: No Surgical History Surgical History History of incisional hernia repair (04/04/24) Hx of umbilical hernia repair (~2022) History of hernia repair History of Problems with Anesthesia: No Social History Social History Are you a primary cardiac care nurse to a significant other at home: No Do you presently have visiting nurse or other home services: No Alcohol intake: never Patient Tobacco Use Status: Former Tobacco user Tobacco use type: Cigarette Use of substances other than those prescribed or required for medical reasons: Yes Substance Use Type: Marijuana Substance Use Type Other:: smoked--LD ? 12/28 am or 12/27 Are you DNR?: No Advance Directives: No Advance Directives Information Provided: Yes Meds Allergies Allergy/AdvReac Type Severity Reaction Status Date / Time No Known Allergies Allergy Verified 12/28/24 10:56 Home Medications ?Medication ?Instructions ?Recorded ?Confirmed ?Last Taken ?Type celecoxib 200 mg capsule (Celebrex) 200 mg PO BID 02/09/24 12/28/24 12/27/24 History cyclobenzaprine 10 mg tablet 10 mg PO BEDTIME 02/09/24 12/28/24 Unknown History lisinopril 20 1 tab PO DAILY 02/09/24 12/28/24 10/04/24 History mg-hydrochlorothiazide 25 mg tablet omeprazole 20 mg capsule,delayed 20 mg PO DAILY 02/09/24 12/28/24 Unknown History release quetiapine 25 mg tablet (Seroquel) 25 mg PO DAILY 02/09/24 12/28/24 Unknown History sennosides 8.6 mg tablet (Natural 8.6 mg PO DAILY 02/09/24 12/28/24 Unknown History Senna Laxative) trazodone 100 mg tablet 100 mg PO BEDTIME PRN Insomnia 02/09/24 12/28/24 Unknown History Exam Height,Weight and Vital Signs: Height 5 ft 11 in Weight 152.861 kg Pertinent Lab Results Pertinent Lab Results: Laboratory Tests 10/11/24 12:25 WBC 6.2 Hgb 14.0 Hct 42.1 Plt Count 174 Sodium 142 Potassium 4.1 Chloride 110 H Carbon Dioxide 23 BUN 18 H Creatinine 1.00 Narrative Narrative: EKG 09/2024 Vent. Rate : 81 BPM Atrial Rate : 81 BPM P-R Int : 160 ms QRS Dur : 78 ms QT Int : 390 ms P-R-T Axes : 58 37 31 degrees QTcB Int : 453 ms Normal sinus rhythm Normal ECG No previous ECGs available Assessment and Plan Assessment Anesthesia Assessment: Chart Reviewed Final Anesthetic Review Family History of Problems with Anesthesia: No History of Problems with Anesthesia: No Documented by User: Igor Bunn MD 12/28/24 13:10 [facility] Past Medical History Medical History (Updated 12/28/24 @ 10:56 by Asya Schafer RN) Sleep apnea Insomnia Back pain Morbid obesity Incisional hernia History of substance abuse GERD (gastroesophageal reflux disease) Obesity Depression Low back pain Hypertension Hypertension Surgical History Surgical History History of incisional hernia repair (04/04/24) Hx of umbilical hernia repair (~2022) History of hernia repair Social History Social History Are you a primary cardiac care nurse to a significant other at home: No Do you presently have visiting nurse or other home services: No Alcohol intake: never Patient Tobacco Use Status: Former Tobacco user Tobacco use type: Cigarette Use of substances other than those prescribed or required for medical reasons: Yes Substance Use Type: Marijuana Substance Use Type Other:: smoked--LD ? 12/28 am or 12/27 Are you DNR?: No Advance Directives: No Advance Directives Information Provided: Yes Meds Allergies Allergy/AdvReac Type Severity Reaction Status Date / Time No Known Allergies Allergy Verified 12/28/24 10:56 Home Medications ?Medication ?Instructions ?Recorded ?Confirmed ?Last Taken ?Type celecoxib 200 mg capsule (Celebrex) 200 mg PO BID 02/09/24 12/28/24 12/27/24 History cyclobenzaprine 10 mg tablet 10 mg PO BEDTIME 02/09/24 12/28/24 Unknown History lisinopril 20 1 tab PO DAILY 02/09/24 12/28/24 10/04/24 History mg-hydrochlorothiazide 25 mg tablet omeprazole 20 mg capsule,delayed 20 mg PO DAILY 02/09/24 12/28/24 Unknown History release quetiapine 25 mg tablet (Seroquel) 25 mg PO DAILY 02/09/24 12/28/24 Unknown History sennosides 8.6 mg tablet (Natural 8.6 mg PO DAILY 02/09/24 12/28/24 Unknown History Senna Laxative) trazodone 100 mg tablet 100 mg PO BEDTIME PRN Insomnia 02/09/24 12/28/24 Unknown History Exam Airway Mallampati Class: II TM Dist: <=3cm Neck ROM: Full Loose/Missing/Broken Teeth: No Heart: ok Lungs: ok Assessment and Plan Assessment Anesthesia Assessment: Anesthesia Plan Discussed Final Anesthetic Review NPO: Yes ASA Class: III Final Preanesthetic Review: No Changes in Pt Med Stat, Meds/Allgs Chart Reviewed, Consent Obtained/Reviewed and Anes Risks/Benef Reviewed Patient Risk: High Procedure Risk: Intermediate Anesthetic Plan Anesthetic Plan: GA and Agree w/ Assess. and Plan Disposition: Standard PACU
[2024-12-28 10:57] VITALS: BMI 46.7
[2024-12-28 11:07] VITALS: BP 153/69; PULSE 69; RESP 16; TEMP 36.1; O2SAT 97
[2024-12-28] MEDS: Lactated Ringers 1,000 ML 100 ML IVCONT (11:20)
--- NOTE | 2024-12-28 12:50 | MHC.SHP ---
Pre-Procedural Eval Section A - 24 Hr Update-Section A only Date of Service: 12/28/24 The patient is an INPATIENT: No Changes since office visit: Yes Patient answered all questions; No Cold of Flu in the past 2 weeks, No New Medical Problems and No Changes in Medication The patient has been examined within 24 hours of the surgical procedure. The History & Physical has been completed within 30 days and I have reviewed it.: Yes Section B - Complete if H&P > 30 days Chief Complaint: Incisional hernia without obstruction or gangrene Allergies: Allergies Allergy/AdvReac Type Severity Reaction Status Date / Time No Known Allergies Allergy Verified 12/28/24 10:56 Plan Diagnosis/Plan: Unchanged I have reviewed the history and physical and performed a pertinent physical examination on my patient. No changes have occurred unless specified. Time Spent With Patient Time: Total time managing care of this patient today ____ minutes.
--- NOTE | 2024-12-28 14:57 | P.OP_ITS ---
Operative Note Operative Note Date of Service: 12/28/24 Narrative: Preoperative diagnosis: Recurrent incisional hernia Postoperative diagnosis: Same Procedure: Repair recurrent incisional hernia with mesh Surgeon: Edwardo Vaughan MD Knitting Machine Tender: Neetu Geronimo PA-C; Roberto Hooper PA-C, EVER Mckeon Anesthesia: General endotracheal Indications for procedure: 44-year-old male patient presenting for repair of a recurrent incisional hernia. He previously underwent repair of a large incisional hernia located in the upper abdomen. He now has new openings in the lower abdomen below the previous incision. Operative findings: Multiple incisional hernias in the lower abdomen measuring at least 7 cm in diameter repaired with a 11.5 cm round Ventrio mesh Specimen: Hernia sac Estimated blood loss: 20 mL Complications: None Procedure details: Patient was brought to the OR and placed in a supine position. After administering general anesthesia the patient's abdomen was prepped with ChloraPrep and draped in a sterile fashion. A surgical time-out was called the consent confirmed. Patient received preoperative antibiotics and Venodyne boots were in place. Local anesthesia was infiltrated in the upper midline from just below the umbilicus to approximately 5 cm above the umbilicus. An incision was then made with a scalpel and carried out through subcutaneous tissue up to the hernia sac. The umbilical skin was lifted off the fascia and a umbilical hernia identified as well. Hernia was located more to the left of midline therefore dissection was continued laterally along the left upper quadrant to incorporate all the multiple openings that were identified. Omentum was noted within the hernia sac. This was all freed and returned to the abdominal cavity. Hernia sac was then dissected free from the surrounding subcutaneous tissue. This was then excised and sent to pathology for further examination. Hemostasis was assured using electrocautery. A defect of approximately 7 cm was identified. An 11.5 cm round Ventrio mesh was then obta ined. This was deployed within the abdominal cavity. The mesh was then secured circumferentially using interrupted 1 Tycron sutures. Superiorly the mesh was secured to the previous mesh in the midline. Wounds were then irrigated with saline solution and suctioned dry. Wounds were again checked for hemostasis. Fascia was then closed over the mesh using [id number] 1 Tycron sutures. Prior to complete closure of the fascia 8 mL of Zenrelef was instilled below the fascia and then the fascia was closed. Wounds were again irrigated with saline solution and suctioned dry. Umbilical skin was then secured to the fascia with a 3-0 Polysorb suture. Dermis was reapproximated using interrupted 3-0 Polysorb sutures. Skin was closed using skin mariah. Sterile dressings consisting of 4 4 gauze and Tegaderm were then applied. The patient tolerated the procedure well. Abdominal binder was applied. Sponge, instrument, and needle counts reported as correct. The patient was transferred to PACU in stable condition.
[2024-12-28 15:15] VITALS: BP 148/85; PULSE 72; RESP 12; TEMP 37.1; O2SAT 90
[2024-12-28 15:20] VITALS: BP 148/89; PULSE 67; RESP 12; O2SAT 99
[2024-12-28 15:25] VITALS: BP 144/78; PULSE 68; RESP 15; O2SAT 99
[2024-12-28 15:30] VITALS: BP 134/83; PULSE 78; RESP 17; O2SAT 99
[2024-12-28 15:46] VITALS: TEMP 36.1
== END 2024-12-28 17:05 | disposition home or self-care (01) ==
PROVIDERS: PCP Physician Assistant Medical; Visit Provider Surgery
PROC: (CPT 49615; principal; 2024-12-28 13:50)
DX: K43.2 Incisional hernia without obstruction or gangrene (principal); I10 Essential (primary) hypertension
CPT/HCPCS: 49615; 88302; C1781; J0131; J0668; J0690; J2003; J2250; J2405; J2704; J2795; J3010

== ENCOUNTER → 2024-12-28 10:46 | Outpatient (BNV) | payer OTHER, SELFPAY | PROVIDERS: PCP Physician Assistant Medical; Visit Provider Surgery | DX: K43.2 Incisional hernia without obstruction or gangrene (principal) | CPT/HCPCS: 49615 ==

== ENCOUNTER 2025-01-04 10:24 | Outpatient (AMB) | payer OTHER, SELFPAY ==
--- NOTE | 2025-01-04 10:35 | A.OFFVIS_ITS ---
Vital Signs 01/04/25 10:42 Weight 341 lb BP 157/77 H Blood Pressure Location Rt radial Position Sitting Pulse 78 Intake Visit Reasons: s/p incisional hernia w/mesh Intake Note: Patient here s/p repair recurrent incisional hernia with mesh. Patient c/o: painful bulge to the left of incision that is more noticeable when laying down. Steri strips still in place. Taking rx pain meds at night. Tylenol as needed. Surgery (): 12-28-2024 Machine Heddle Cleaner Required: No Accompanied by: Lisandra Allergies No Known Allergies Allergy (Verified 01/04/25 10:42) HPI HPI s/p incisional hernia w/mesh: Details: He is doing okay, has noticed a lump on the left side of the incision that is bigger when he lays down. Has become more painful to the touch. He does note some drainage of clear yellow blood-tinged fluid from the incision site. He denies any odor from the incision site. Denies any redness around the incision site. He is concerned that this hernia has recurred again. Otherwise he is doing well. Passing gas, passing bowel movements at baseline. Appetite also at baseline. Denies nausea or vomiting. [facility] Medical History (Updated 01/04/25 @ 11:24 by Roberto Hooper PA-C) Incisional hernia (12/28/24) Sleep apnea Insomnia Back pain Morbid obesity Incisional hernia History of substance abuse GERD (gastroesophageal reflux disease) Obesity Depression Low back pain Hypertension Hypertension Surgical History History of incisional hernia repair (04/04/24) Hx of umbilical hernia repair (~2022) History of hernia repair Social History Are you a primary geriatric personal care aide to a significant other at home: No Do you presently have visiting nurse or other home services: No Alcohol intake: never Comment: COUNTS CORRECT Patient Tobacco Use Status: Former Tobacco user Tobacco use type: Cigarette Substance Use Type: Marijuana Review of Systems Const All systems reviewed & are unremarkable except as noted in HPI and below Physical Exam Vital Signs: Last Vital Signs Pulse 78 01/04/25 10:42 BP 157/77 H 01/04/25 10:42 Const General: comfortable and no acute distress Orientation/consciousness: patient oriented x3 GI Other: There was a large tender palpable fluid collection on the left lateral aspect of the incision site. There was some serosanguineous drainage passively draining through the incision site. [place] remain in place. No malodor, no purulence, no erythema. Inspection: No distended and Yes obesity Palpation (GI): Soft to palpation, Tenderness to palpation present (GI) (Incision site and to the left lateral side of the incision.) and no guarding Neuro General: patient oriented x3 Assessment & Plan Assessment & Plan (1) Incisional hernia: Onset Date: 12/28/24 Comment: Repair recurrent incisional hernia with mesh Edwardo Lucas Code(s): K43.2 - Incisional hernia without obstruction or gangrene Category: Medical Qualifiers: Obstruction and gangrene presence: without obstruction or gangrene Qualified Code(s): K43.2 - Incisional hernia without obstruction or gangrene (2) Seroma of skin or subcutaneous tissue after non-dermatologic procedure: Code(s): L76.34 - Postprocedural seroma of skin and subcutaneous tissue following other procedure Category: Medical Plan 44-year-old male s/p recurrent incisional hernia repair with mesh on 12/[address] Vaughan returned to the office for follow-up. Patient is doing okay however he has noticed that there was a bulge on the left side of the incision and he is concerned that there is a recurrence of the hernia. He states it has become more painful. He additionally has some serous drainage from the incision site. Has been keeping it covered and dressed. There has been no malodor or purulence noted. No fevers at home. no surrounding skin changes. He is otherwise doing well, diet and appetite are at baseline. He is passing gas and passing bowel movements without issues. Denying nausea or vomiting. On exam there was a palpable fluid collection to the left lateral aspect of the incision site. There were no cellulitic skin changes. There was some passive drainage of serosanguineous fluid from the middle of the incision site I did not note any purulence. It is likely that this is a seroma formation given that intraoperatively the hernia was found to be more lateral than midline with the additional dissection. I removed 1 staple from the middle of the incision, I then probed laterally with a Q-tip which expressed a large amount of serosanguineous fluid. The patient felt relief from some of the pain and pressure from this fluid collection. The fluid was serosanguineous, nonpurulent, I am not concerned for infection at this time. No packing was placed as this is actively draining now. I instructed the patient to keep this dressed changing as needed but at least daily. He is okay to shower but should change the dressings after showering. We will continue with activity restrictions no heavy lifting greater than 15-20 lb. He will return in one-week for follow-up and wound check. We discussed return precautions including worsening pain, redness, malodor, changes in discharge, fevers at home. Patient will reach out sooner if he begins to develop these or any other concerning symptoms. Coding Level of Care Code Est Pt Level 4 (42305) Diagnoses Incisional hernia, without obstruction or gangrene K43.2 Obstruction and gangrene presence: without obstruction or gangrene Seroma of skin or subcutaneous tissue after non-dermatologic procedure L76.34
[2025-01-04 10:42] VITALS: BP 157/77; PULSE 78
== END 2025-01-04 11:02 | disposition home or self-care (01) ==
LOC: HO.HGS 10:24
PROVIDERS: PCP Physician Assistant Medical
DX: K43.2 Incisional hernia without obstruction or gangrene (principal); L76.34 Postprocedural seroma of skin and subcutaneous tissue following other procedure
CPT/HCPCS: 99214

== ENCOUNTER → 2025-01-04 10:24 | Outpatient (BNVA) | payer OTHER, SELFPAY | PROVIDERS: PCP Physician Assistant Medical | DX: L76.34 Postprocedural seroma of skin and subcutaneous tissue following other procedure (principal); K43.2 Incisional hernia without obstruction or gangrene; Z98.890 Other specified postprocedural states | CPT/HCPCS: 99212 ==

== ENCOUNTER 2025-01-11 | Outpatient (REF) | payer OTHER, SELFPAY | END 2025-01-11 00:01 | disposition home or self-care (01) | LOC: CF | PROVIDERS: PCP Physician Assistant Medical | DX: L76.34 Postprocedural seroma of skin and subcutaneous tissue following other procedure (principal); K43.2 Incisional hernia without obstruction or gangrene | CPT/HCPCS: 99212 ==

== ENCOUNTER 2025-01-11 13:45 | Outpatient (AMB) | payer OTHER, SELFPAY ==
--- NOTE | 2025-01-11 13:50 | MHC.OFFVIS ---
Vital Signs 01/11/25 13:57 Weight 336 lb BP 156/86 H Blood Pressure Location Rt radial Position Sitting Pulse 82 Intake Visit Reasons: 1wk s/p incisional hernia Intake Note: Patient here 2wk s/p repair recurrent incisional hernia with mesh. Patient c/o: lump above incisions has decreased in size. Tender to touch, oozing clear fluid. Denies bleeding. Reports overall incision site much improved since last visit. Surgery (JOSE): 12-28-2024 EMELY (WILMA): 01-04-2025 Residence Director Required: No Accompanied by: Spouse Allergies No Known Allergies Allergy (Verified 01/11/25 13:56) HPI HPI 1wk s/p incisional hernia: Details: Doing okay, better than previous visit. The wound continues to drain clear yellow fluid. he denies odor. He keeps this coverd with gauze and tape. The lump that he felt to the left lateral is smaller. The incision site remains tender to the touch. he denies fevers at home. No issues with [facility] Medical History (Updated 01/04/25 @ 11:24 by Roberto Hooper PA-C) Incisional hernia (12/28/24) Sleep apnea Insomnia Back pain Morbid obesity Incisional hernia History of substance abuse GERD (gastroesophageal reflux disease) Obesity Depression Low back pain Hypertension Hypertension Surgical History (Updated 01/04/25 @ 12:08 by ELLA Moss) History of incisional hernia repair (12/28/24) History of incisional hernia repair (04/04/24) Hx of umbilical hernia repair (~2022) History of hernia repair Social History Are you a primary patient care nursing assistant to a significant other at home: No Do you presently have visiting nurse or other home services: No Alcohol intake: never Comment: COUNTS CORRECT Patient Tobacco Use Status: Former Tobacco user Tobacco use type: Cigarette Substance Use Type: Marijuana Physical Exam Vital Signs: Last Vital Signs Pulse 82 01/11/25 13:57 BP 156/86 H 01/11/25 13:57 Const General: comfortable and no acute distress Orientation/consciousness: patient oriented x3 Resp Effort & Inspection: normal respiratory effort and able to speak in complete sentences GI Other: Incision site: Lan in place, small 1.5 cm opening in the middle of the incision where it was previously open to relieve seroma. Some hypergranulation tissue on the wound border. No further palpable fluid collection. Draining small amounts of serous fluid. Inspection: No distended Palpation (GI): Soft to palpation and Tenderness to palpation present (GI) (incision site) Neuro General: patient oriented x3 Assessment & Plan Assessment & Plan (1) Incisional hernia: Onset Date: 12/28/24 Comment: Repair recurrent incisional hernia with mesh Edwardo Lucas Code(s): K43.2 - Incisional hernia without obstruction or gangrene Category: Medical Qualifiers: Obstruction and gangrene presence: without obstruction or gangrene Qualified Code(s): K43.2 - Incisional hernia without obstruction or gangrene (2) Seroma of skin or subcutaneous tissue after non-dermatologic procedure: Code(s): L76.34 - Postprocedural seroma of skin and subcutaneous tissue following other procedure Category: Medical Plan 44-year-old male s/p recurrent incisional hernia repair with mesh on 12/[address] Vaughan returned to the office for follow-up. Patient is improved since last visit. Incision site continues to drain serous fluid. He has been keeping the dressings clean, changing at least daily. There has been no malodor or purulence noted. No fevers at home. no surrounding skin changes. Denies pain. Denies nausea or vomiting He is otherwise doing well, diet and appetite are at baseline. He is passing gas and passing bowel movements without issues. On exam there was no longer a palpable fluid collection to the left lateral aspect of the incision site. There were no cellulitic skin changes. There was some scant drainage of serosanguineous fluid from the middle of the incision site where it was previously opened to drain seroma. The incision site appears to be healing well, there is some hypergranulation tissue from where the serous fluid has been draining. No concern for infection I removed the remaining staple from the the incision. I instructed the patient to keep this dressed changing as needed but at least daily. He is okay to shower but should change the dressings after showering. We will continue with activity restrictions no heavy lifting greater than 15-20 lb. He will return in 2 week for follow-up and wound check. We reinforced return precautions including worsening pain, redness, malodor, changes in discharge, fevers at home. Patient will reach out sooner if he begins to develop these or any other concerning symptoms. Coding Level of Care Code Est Pt Level 3 (87871) Diagnoses Incisional hernia, without obstruction or gangrene K43.2 Obstruction and gangrene presence: without obstruction or gangrene Seroma of skin or subcutaneous tissue after non-dermatologic procedure L76.34
[2025-01-11 13:57] VITALS: BP 156/86; PULSE 82
== END 2025-01-11 14:06 | disposition home or self-care (01) ==
LOC: HO.HGS 13:45
PROVIDERS: PCP Physician Assistant Medical
DX: K43.2 Incisional hernia without obstruction or gangrene (principal); L76.34 Postprocedural seroma of skin and subcutaneous tissue following other procedure
CPT/HCPCS: 99213

== ENCOUNTER 2025-01-25 12:20 | Outpatient (AMB) | payer OTHER, SELFPAY ==
--- NOTE | 2025-01-25 12:29 | MHC.OFFVIS ---
Vital Signs 01/25/25 12:35 Height 5 ft 11 in Weight 152 kg BMI 46.7 Respiration 17 Intake Visit Reasons: 3wk s/p incisional hernia Intake Note: Patient is seen in office for 3 weeks follow up visit, post incisional hernia repair. Pt c/o: denies any concerns Cereal Maker Required: No Accompanied by: Family/Other Allergies No Known Allergies Allergy (Verified 01/25/25 12:30) HPI HPI 3wk s/p incisional hernia: Details: Doing well, no further drainage. Some occasional pain with movement but otherwise feeling better. The previous lump that he noticed has improved. He continues to participate in weight management program, has lost about 20-25 lb with diet alone. No issues with bowel function, urination. Wondering when he can start to increase activity without restrictions. [facility] Medical History Incisional hernia (12/28/24) Sleep apnea Insomnia Back pain Morbid obesity Incisional hernia History of substance abuse GERD (gastroesophageal reflux disease) Obesity Depression Low back pain Hypertension Hypertension Surgical History History of incisional hernia repair (12/28/24) History of incisional hernia repair (04/04/24) Hx of umbilical hernia repair (~2022) History of hernia repair Social History Are you a primary campground caretaker to a significant other at home: No Do you presently have visiting nurse or other home services: No Alcohol intake: never Comment: COUNTS CORRECT Patient Tobacco Use Status: Former Tobacco user Tobacco use type: Cigarette Substance Use Type: Marijuana Physical Exam Vital Signs: Last Vital Signs Resp 17 01/25/25 12:35 BMI result Body Mass Index 46.7 Const General: comfortable and no acute distress Orientation/consciousness: patient oriented x3 Resp Effort & Inspection: normal respiratory effort and able to speak in complete sentences GI Other: Incision site: Lan in place, pinpoint open wound good granulation tissue. in the middle of the incision where it was previously open to relieve seroma. No further palpable fluid collection. Draining small amounts of serous fluid. No recurrence on Valsalva Inspection: No distended Palpation (GI): Soft to palpation and Tenderness to palpation present (GI) (incision site) Neuro General: patient oriented x3 Assessment & Plan Assessment & Plan (1) Incisional hernia: Onset Date: 12/28/24 Comment: Repair recurrent incisional hernia with mesh Edwardo Lucas Code(s): K43.2 - Incisional hernia without obstruction or gangrene Category: Medical Qualifiers: Obstruction and gangrene presence: without obstruction or gangrene Qualified Code(s): K43.2 - Incisional hernia without obstruction or gangrene (2) Seroma of skin or subcutaneous tissue after non-dermatologic procedure: Code(s): L76.34 - Postprocedural seroma of skin and subcutaneous tissue following other procedure Category: Medical Plan 44-year-old male s/p recurrent incisional hernia repair with mesh on 12/[address] Vaughan returned to the office for follow-up. Patient is improved since last visit. Incision site no longer draining fluid. No longer requiring dressings. Denies pain. Denies nausea or vomiting He is otherwise doing well, diet and appetite are at baseline. He is continuing with the weight management program, has lost about 25 lb with diet alone. We will continue activity restrictions for 2 weeks, after 2 weeks can slowly resume activity as tolerated. He is passing gas and passing bowel movements without issues. On exam his abdomen was soft and benign, no recurrence noted on Valsalva. there was no longer a palpable fluid collection to the left lateral aspect of the incision site. There were no cellulitic skin changes. There was a pinpoint wound from the previous opening to drain the seroma this is granulation tissue, there was no drainage noted no purulence. No concern for infection at this time. There was some deep induration, recommended using warm compress 2 to 3 times a day to help soften this issue.. At this point no longer requiring follow up, can follow up as needed with any concerns in the future. Patient will reach out sooner if he begins to develop these or any other concerning symptoms. Coding Level of Care Code Est Pt Level 3 (75276) Diagnoses Incisional hernia, without obstruction or gangrene K43.2 Obstruction and gangrene presence: without obstruction or gangrene Seroma of skin or subcutaneous tissue after non-dermatologic procedure L76.34
[2025-01-25 12:35] VITALS: RESP 17; BMI 46.7
== END 2025-01-25 12:41 | disposition home or self-care (01) ==
LOC: HO.HGS 12:21
PROVIDERS: PCP Physician Assistant Medical
DX: K43.2 Incisional hernia without obstruction or gangrene (principal); L76.34 Postprocedural seroma of skin and subcutaneous tissue following other procedure
CPT/HCPCS: 99213

== ENCOUNTER → 2025-01-25 12:20 | Outpatient (BNVA) | payer OTHER, SELFPAY | PROVIDERS: PCP Physician Assistant Medical | DX: K43.2 Incisional hernia without obstruction or gangrene (principal); L76.34 Postprocedural seroma of skin and subcutaneous tissue following other procedure; Z98.890 Other specified postprocedural states | CPT/HCPCS: 99212 ==